=== PATIENT | female | born 1990 | race African-American/Black ===

== ENCOUNTER 2017-07-21 13:25 | Emergency (ER) | payer SELFPAY ==
--- NOTE | 2017-07-21 14:48 | ER ---
Nurse's Notes [facility] Name: Suha Valencia Age: 26 yrs Sex: Female : 1990 Arrival Date: 07/21/2017 Time: 13:26 Bed 15 Private MD: Diagnosis: Streptococcal pharyngitis Presentation: 07/21 13:31 Presenting complaint: Patient states: Left ear pain since yesterday. Reports fever at home. Transition of care: patient was not received from another setting of care. Onset of symptoms was July 20, 2017. Care prior to arrival: None. 13:31 Method Of Arrival: Ambulatory 13:31 Acuity: KRISTIAN 5 Triage Assessment: 13:33 General: Appears in no apparent distress. comfortable, Behavior is calm, cooperative, aj appropriate for age. Pain: Complains of pain in left ear Pain currently is 8 out of 10 on a pain scale. EENT: Reports pain in left ear. Neuro: Level of Consciousness is awake, alert, obeys commands, Oriented to person, place, time, situation. Respiratory: Airway is patent Respiratory effort is even, unlabored, Respiratory pattern is regular, symmetrical. Derm: Skin is intact, is healthy with good turgor, Skin is pink, warm \T\ dry. normal. 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 - Social history:: Smoking status: Patient/guardian denies using tobacco. Screenin:15 Abuse screen: Denies threats or abuse. Denies injuries from another. Nutritional sv screening: No deficits noted. Tuberculosis screening: No symptoms or risk factors identified. Fall Risk None identified. Assessment: 14:15 General: Appears in no apparent distress. comfortable, well developed, Behavior is sv calm, cooperative, appropriate for age. Pain: Complains of pain in left ear and throat Pain currently is 8 out of 10 on a pain scale. Quality of pain is described as burning. Neuro: Level of Consciousness is awake, alert, obeys commands, Oriented to person, place, time, situation, Moves all extremities. Full function Gait is steady, Speech is normal. Respiratory: Respiratory effort is even, unlabored, Respiratory pattern is regular, symmetrical. EENT: Reports pain in left ear sore throat. Derm: Skin is normal. 14:59 Reassessment: Patient appears in no apparent distress at this time. No changes from sv previously documented assessment. Patient and/or family updated on plan of care and expected duration. Pain level reassessed. Patient is alert, oriented x 3, equal unlabored respirations, skin warm/dry/pink. Vital Signs: 13:33 BP 119 / 80; Pulse 85; Resp 20; Temp 97.9; Pulse Ox 99% on R/A; Weight 83.46 kg (R); aj Height 5 ft. 7 in. (170.18 cm) (R); Pain 8/10; 13:33 Body Mass Index 28.82 (83.46 kg, 170.18 cm) aj ED Course: 13:26 Patient arrived in ED. as 13:28 Kelly Pablo FNP-C is PHCP. kb 13:28 Joselito Sung MD is Attending Physician. kb 13:32 Triage completed. aj 13:33 Arm band placed on left wrist. Patient placed in waiting room, Patient notified of wait aj time. 14:12 Basia Gonzalez, JEOVANNY is Primary Nurse. sv 14:15 Patient has correct armband on for positive identification. Bed in low position. Call sv light in reach. Door closed. Lights dimmed. Head of bed elevated. 14:21 Strep Sent. ag 14:21 Flu Sent. ag 14:21 Flu and/or RSV swab sent to lab. Strep swab sent to lab. ag 14:59 No provider procedures requiring assistance completed. Patient did not have IV access sv during this emergency room visit. Administered Medications: 14:58 Drug: Augmentin 875 mg Route: PO; sv 14:58 Follow up: Response: Medication administered at discharge. sv Outcome: 14:47 Discharge ordered by . kb 14:59 Discharged to home ambulatory. sv 14:59 Condition: stable 14:59 Discharge instructions given to patient, Instructed on discharge instructions, follow up and referral plans. no drinking with medication, medication usage, Demonstrated understanding of instructions, follow-up care, medications, Prescriptions given X 1. 15:01 Patient left the ED. sv Signatures: Kelly Pablo FNP-C FNP-Ckb Basia Gonzalez, RN RN Kaye Conrad, RN RN Rebecca Quevedo Ana
--- NOTE | 2017-07-21 14:48 | EDPHYS ---
Physician Documentation [facility] Name: Suha Valencia Age: 26 yrs Sex: Female : 1990 Arrival Date: 07/21/2017 Time: 13:26 Bed 15 Private MD: ED Physician Joselito Sung HPI: 07/21 14:42 This 26 yrs old Black Female presents to ER via Ambulatory with complaints of Fever, kb Cough, Ear Pain. 14:42 The patient or guardian reports cough, that is intermittent, described as mild, with no kb sputum, flu symptoms, low-grade fever, myalgias. Onset: The symptoms/episode began/occurred this morning. Severity of symptoms: At their worst the symptoms were mild, moderate, in the emergency department the symptoms are unchanged. Modifying factors: The symptoms are alleviated by nothing, the symptoms are aggravated by nothing. Associated signs and symptoms: Pertinent positives: earache, fever, rhinorrhea, sore throat, Pertinent negatives: chest pain, diarrhea, nausea, vomiting. The patient has not experienced similar symptoms in the past. The patient has not recently seen a physician. 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 - Social history:: Smoking status: Patient/guardian denies using tobacco. ROS: 14:42 Cardiovascular: Negative for chest pain, palpitations, and edema, Abdomen/GI: Negative kb for abdominal pain, nausea, vomiting, diarrhea, and constipation, Back: Negative for injury and pain, : Negative for injury, bleeding, discharge, and swelling, MS/Extremity: Negative for injury and deformity, Skin: Negative for injury, rash, and discoloration, Neuro: Negative for headache, weakness, numbness, tingling, and seizure. 14:42 Constitutional: Positive for fever, malaise, Negative for body aches, chills, fatigue, poor PO intake, weight loss. 14:42 ENT: Positive for ear pain, rhinorrhea, sore throat. 14:42 Respiratory: Positive for cough, Negative for dyspnea on exertion, hemoptysis, orthopnea, pleurisy, shortness of breath, sputum production, wheezing. Exam: 14:42 Constitutional: This is a well developed, well nourished patient who is awake, alert, kb and in no acute distress. Head/Face: Normocephalic, atraumatic. ENT: Nares patent. No nasal discharge, no septal abnormalities noted. Tympanic membranes are normal and external auditory canals are clear. Oropharynx with redness, no swelling, or masses, exudates, or evidence of obstruction, uvula midline. Mucous membranes moist. Neck: Trachea midline, no thyromegaly or masses palpated, and no cervical lymphadenopathy. Supple, full range of motion without nuchal rigidity, or vertebral point tenderness. No Meningismus. Chest/axilla: Normal chest wall appearance and motion. Nontender with no deformity. No lesions are appreciated. Cardiovascular: Regular rate and rhythm with a normal S1 and S2. No gallops, murmurs, or rubs. Normal PMI, no JVD. No pulse deficits. Respiratory: Lungs have equal breath sounds bilaterally, clear to auscultation and percussion. No rales, rhonchi or wheezes noted. No increased work of breathing, no retractions or nasal flaring. Abdomen/GI: Soft, non-tender, with normal bowel sounds. No distension or tympany. No guarding or rebound. No evidence of tenderness throughout. Skin: Warm, dry with normal turgor. Normal color with no rashes, no lesions, and no evidence of cellulitis. MS/ Extremity: Pulses equal, no cyanosis. Neurovascular intact. Full, normal range of motion. Neuro: Awake and alert, GCS 15, oriented to person, place, time, and situation. Cranial nerves II-XII grossly intact. Motor strength 5/5 in all extremities. Sensory grossly intact. Cerebellar exam normal. Normal gait. Vital Signs: 13:33 BP 119 / 80; Pulse 85; Resp 20; Temp 97.9; Pulse Ox 99% on R/A; Weight 83.46 kg (R); aj Height 5 ft. 7 in. (170.18 cm) (R); Pain 8/10; 13:33 Body Mass Index 28.82 (83.46 kg, 170.18 cm) aj MDM: 14:01 Patient medically screened. kb 14:44 Data reviewed: vital signs, nurses notes. Data interpreted: Pulse oximetry: on room air kb is 99 %. Interpretation: normal. 14:47 Counseling: I had a detailed discussion with the patient and/or guardian regarding: the kb historical points, exam findings, and any diagnostic results supporting the discharge/admit diagnosis, lab results, the need for outpatient follow up, a family practitioner, to return to the emergency department if symptoms worsen or persist or if there are any questions or concerns that arise at home. 07/21 14:08 Order name: Flu; Complete Time: 14:46 kb 07/21 14:08 Order name: Strep; Complete Time: 14:46 kb Administered Medications: 14:58 Drug: Augmentin 875 mg Route: PO; sv 14:58 Follow up: Response: Medication administered at discharge. sv Disposition: 07/22 08:03 Co-signature as Attending Physician, Joselito Sung MD I agree with the assessment and wa plan of care. Disposition: 07/21/17 14:47 Discharged to Home. Impression: Streptococcal pharyngitis. - Condition is Stable. - Discharge Instructions: Strep Throat, [id number]. - Prescriptions for Augmentin 875- 125 mg Oral Tablet - take 1 tablet by ORAL route every 12 hours for 7 days; 14 tablet. - Work release form, Medication Reconciliation Form, Thank You Letter, Antibiotic Education, Prescription Opioid Use form. - Follow up: Emergency Department; When: As needed; Reason: Worsening of condition. Follow up: Private Physician; When: 2 - 3 days; Reason: Recheck today's complaints, Continuance of care, Re-evaluation by your physician. Signatures: Dispatcher [employer] Kelly Watts, FREEDOM SCHMITZ-Basia Parisi, RN Kaye Wagner RN RN aj Appiah, William, MD MD wa
[2017-07-21] MEDS ORDERED: AMOX/K CLAV 875 MG TAB ONE (14:50)
[2017-07-21 15:06] VITALS: BP 119/80; TEMP 97.9; O2SAT 99
== END 2017-07-21 15:01 | disposition home or self-care (01) ==
LOC: ER 13:25
DX: J02.0 Streptococcal pharyngitis (principal)
CPT/HCPCS: 87081; 87804; 99283

== ENCOUNTER 2017-11-23 22:29 | Emergency (ER) | payer SELFPAY ==
--- NOTE | 2017-11-23 23:29 | EDPHYS ---
Physician Documentation [facility] Name: Suha Valencia Age: 27 yrs Sex: Female : 1990 Arrival Date: 11/23/2017 Time: 22:31 Bed 30 Private MD: ED Physician Chino Braun HPI: 11/24 01:07 This 27 yrs old Black Female presents to ER via Ambulatory with complaints of Back Pain.snw 01:07 The patient presents with pain that is acute, with no known mechanism of injury. The snw symptoms are located in the right scapular area. Onset: The symptoms/episode began/occurred suddenly, 1 week(s) ago, and became persistent. The pain does not radiate. Associated signs and symptoms: The patient has no apparent associated signs or symptoms. The problem was sustained from unknown cause. Modifying factors: The patient symptoms are alleviated by nothing, the patient symptoms are aggravated by movement. Severity of symptoms: At their worst the symptoms were moderate, severe. The patient has not experienced similar symptoms in the past. The patient has not recently seen a physician. Historical: - Home Meds: 11/23 22:44 None [Active]; rv - PMHx: 22:44 None; rv - PSHx: 22:44 None; rv - Immunization history:: Adult Immunizations up to date. - Social history:: Smoking status: Patient/guardian denies using tobacco, never smoked. - Ebola Screening: : Patient negative for fever greater than or equal to 101.5 degrees Fahrenheit, and additional compatible Ebola Virus Disease symptoms Patient denies exposure to infectious person Patient denies travel to an Ebola-affected area in the 21 days before illness onset. ROS: 11/24 01:07 Constitutional: Negative for fever, chills, and weight loss, Eyes: Negative for injury, snw pain, redness, and discharge, ENT: Negative for injury, pain, and discharge, Neck: Negative for injury, pain, and swelling, Cardiovascular: Negative for chest pain, palpitations, and edema, Respiratory: Negative for shortness of breath, cough, wheezing, and pleuritic chest pain, Abdomen/GI: Negative for abdominal pain, nausea, vomiting, diarrhea, and constipation, : Negative for injury, bleeding, discharge, and swelling, MS/Extremity: Negative for injury and deformity, Skin: Negative for injury, rash, and discoloration, Neuro: Negative for headache, weakness, numbness, tingling, and seizure. Back: Positive for pain at rest, pain with movement. Exam: 01:06 Constitutional: This is a well developed, well nourished patient who is awake, alert, snw and in no acute distress. Head/Face: Normocephalic, atraumatic. Eyes: Pupils equal round and reactive to light, extra-ocular motions intact. Lids and lashes normal. Conjunctiva and sclera are non-icteric and not injected. Cornea within normal limits. Periorbital areas with no swelling, redness, or edema. ENT: Nares patent. No nasal discharge, no septal abnormalities noted. Tympanic membranes are normal and external auditory canals are clear. Oropharynx with no redness, swelling, or masses, exudates, or evidence of obstruction, uvula midline. Mucous membranes moist. Neck: Trachea midline, no thyromegaly or masses palpated, and no cervical lymphadenopathy. Supple, full range of motion without nuchal rigidity, or vertebral point tenderness. No Meningismus. Chest/axilla: Normal chest wall appearance and motion. Nontender with no deformity. No lesions are appreciated. Cardiovascular: Regular rate and rhythm with a normal S1 and S2. No gallops, murmurs, or rubs. Normal PMI, no JVD. No pulse deficits. Respiratory: Lungs have equal breath sounds bilaterally, clear to auscultation and percussion. No rales, rhonchi or wheezes noted. No increased work of breathing, no retractions or nasal flaring. Abdomen/GI: Soft, non-tender, with normal bowel sounds. No distension or tympany. No guarding or rebound. No evidence of tenderness throughout. Skin: Warm, dry with normal turgor. Normal color with no rashes, no lesions, and no evidence of cellulitis. MS/ Extremity: Pulses equal, no cyanosis. Neurovascular intact. Full, normal range of motion. Neuro: Awake and alert, GCS 15, oriented to person, place, time, and situation. Cranial nerves II-XII grossly intact. Motor strength 5/5 in all extremities. Sensory grossly intact. Cerebellar exam normal. Normal gait. 01:06 Back: pain, that is moderate, of the right scapular area and right subscapular area, muscle spasm, is appreciated in the right subscapular area. 01:07 Neuro: Exam negative for acute changes. snw Vital Signs: 11/23 22:45 BP 104 / 89; Pulse 97; Pulse Ox 99% ; Weight 81.65 kg (R); Height 5 ft. 7 in. (170.18 rv cm) (R); 23:42 BP 112 / 72; Pulse 78; Resp 18; Pulse Ox 99% on R/A; sr5 22:45 Body Mass Index 28.19 (81.65 kg, 170.18 cm) rv MDM: 22:44 Patient medically screened. snw 11/24 01:08 Data reviewed: vital signs, nurses notes. Data interpreted: Pulse oximetry: on room air snw is 99 %. Interpretation: normal. Counseling: I had a detailed discussion with the patient and/or guardian regarding: the historical points, exam findings, and any diagnostic results supporting the discharge/admit diagnosis, the need for outpatient follow up, to return to the emergency department if symptoms worsen or persist or if there are any questions or concerns that arise at home. Special discussion: Based on the history and exam findings, there is no indication for further emergent testing or inpatient evaluation. I discussed with the patient/guardian the need to see the primary care provider for further evaluation of the symptoms. Administered Medications: 11/23 23:33 Drug: Flexeril 10 mg Route: PO; sr5 23:42 Follow up: Response: Medication administered at discharge. sr5 23:33 Drug: Motrin 400 mg Route: PO; sr5 23:42 Follow up: Response: Medication administered at discharge. sr5 Disposition: 11/24 06:54 Co-signature as Attending Physician, Chino Braun MD I agree with the assessment and cassandra plan of care. Disposition: 11/23/17 23:28 Discharged to Home. Impression: Muscle spasm of back. - Condition is Stable. - Discharge Instructions: Muscle Cramps and Spasms, Back Injury Prevention, [id number], Back Exercises, [id number], Heat Therapy. - Prescriptions for Diclofenac Sodium 75 mg Oral Tablet Sustained Release - take 1 tablet by ORAL route 2 times per day; 30 tablet. orphenadrine citrate 100 mg Oral Tablet Sustained Release - take 1 tablet by ORAL route 2 times per day As needed; 20 tablet. - Work release form, Medication Reconciliation Form, Thank You Letter, Antibiotic Education, Prescription Opioid Use form. - Follow up: Private Physician; When: 2 - 3 days; Reason: Recheck today's complaints, Continuance of care, Re-evaluation by your physician. Follow up: Emergency Department; When: As needed; Reason: Worsening of condition. Signatures: Chino Braun MD MD cha Therrien, Shelly, TIP SCOURER-C TIP SCOURER-Csnw Cleveland Bajwa RN RN sr5 Moises Marr RN RN rv Corrections: (The following items were deleted from the chart) 11/23 23:41 23:28 11/23/2017 23:28 Discharged to Home. Impression: Muscle spasm of back. Condition sr5 is Stable. Forms are Medication Reconciliation Form, Thank You Letter, Antibiotic Education, Prescription Opioid Use. Follow up: Private Physician; When: 2 - 3 days; Reason: Recheck today's complaints, Continuance of care, Re-evaluation by your physician. Follow up: Emergency Department; When: As needed; Reason: Worsening of condition. snw
--- NOTE | 2017-11-23 23:29 | ER ---
Nurse's Notes [facility] Name: Suha Valencia Age: 27 yrs Sex: Female : 1990 Arrival Date: 11/23/2017 Time: 22:31 Bed 30 Private MD: Diagnosis: Muscle spasm of back Presentation: 11/23 22:42 Presenting complaint: Patient states: "I AM HAVING BACK PAINS FOR ONE WEEK NOW". rv Transition of care: patient was not received from another setting of care. Onset of symptoms was November 17, 2017 at 08:00. Risk Assessment: Do you want to hurt yourself or someone else? Patient reports no desire to harm self or others. Initial Sepsis Screen: Does the patient meet any 2 criteria? No. Patient's initial sepsis screen is negative. Does the patient have a suspected source of infection? No. Patient's initial sepsis screen is negative. Care prior to arrival: None. 22:42 Method Of Arrival: Ambulatory rv 22:42 Acuity: KRISTIAN 3 rv Historical: - Home Meds: 22:44 None [Active]; rv - PMHx: 22:44 None; rv - PSHx: 22:44 None; rv - Immunization history:: Adult Immunizations up to date. - Social history:: Smoking status: Patient/guardian denies using tobacco, never smoked. - Ebola Screening: : Patient negative for fever greater than or equal to 101.5 degrees Fahrenheit, and additional compatible Ebola Virus Disease symptoms Patient denies exposure to infectious person Patient denies travel to an Ebola-affected area in the 21 days before illness onset. Screenin:46 Abuse screen: Denies threats or abuse. Denies injuries from another. Nutritional rv screening: No deficits noted. Tuberculosis screening: No symptoms or risk factors identified. Fall Risk None identified. Assessment: 22:46 General: Appears in no apparent distress. uncomfortable, Behavior is calm, cooperative. rv Pain: Complains of pain in back Pain currently is 9 out of 10 on a pain scale. Neuro: Level of Consciousness is awake, alert, obeys commands, Oriented to person, place, time, situation. Cardiovascular: Capillary refill < 3 seconds. Respiratory: Airway is patent. GI: No signs and/or symptoms were reported involving the gastrointestinal system. : No signs and/or symptoms were reported regarding the genitourinary system. EENT: No signs and/or symptoms were reported regarding the EENT system. Derm: Skin is intact. Musculoskeletal: Reports pain in back. 23:33 Reassessment: No changes from previously documented assessment. Patient and/or family sr5 updated on plan of care and expected duration. Pain level reassessed. Patient is alert, oriented x 3, equal unlabored respirations, skin warm/dry/pink. Vital Signs: 22:45 BP 104 / 89; Pulse 97; Pulse Ox 99% ; Weight 81.65 kg (R); Height 5 ft. 7 in. (170.18 rv cm) (R); 23:42 BP 112 / 72; Pulse 78; Resp 18; Pulse Ox 99% on R/A; sr5 22:45 Body Mass Index 28.19 (81.65 kg, 170.18 cm) rv ED Course: 22:31 Patient arrived in ED. al2 22:31 Kath[facility] Damon [facility]C [facility]. snw 22:31 Chino Braun MD is Attending Physician. snw 22:43 Cleveland Bajwa RN is Primary Nurse. sr5 22:43 Triage completed. rv 22:47 Patient has correct armband on for positive identification. Bed in low position. Call rv light in reach. Side rails up X 1. Adult w/ patient. Pulse ox on. NIBP on. 23:33 No provider procedures requiring assistance completed. Patient did not have IV access sr5 during this emergency room visit. 23:42 Arm band placed on right wrist. Patient placed in an exam room. sr5 Administered Medications: 23:33 Drug: Flexeril 10 mg Route: PO; sr5 23:42 Follow up: Response: Medication administered at discharge. sr5 23:33 Drug: Motrin 400 mg Route: PO; sr5 23:42 Follow up: Response: Medication administered at discharge. sr5 Outcome: 23:28 Discharge ordered by . snw 23:41 Patient left the ED. sr5 23:43 Discharged to home ambulatory, quickly got up from bed using twisting motion sr5 23:43 Condition: good 23:43 Discharge instructions given to patient, Instructed on discharge instructions, follow up and referral plans. medication usage, Demonstrated understanding of instructions, follow-up care, medications, Prescriptions given X 2. Signatures: Kathie Damon FNP-C GYNECOLOGIST-Csnw [place] Bajwa, RN RN sr5 Herminia Jama al2 Moises Marr, RN RN rv
[2017-11-23] MEDS ORDERED: CYCLOBENZAPRINE 10 MG TAB ONE (23:35)
[2017-11-23] MEDS ORDERED: IBUPROFEN 400 MG TAB ONE (23:35)
[2017-11-23 23:50] VITALS: BP 104/89; O2SAT 99
== END 2017-11-23 23:41 | disposition home or self-care (01) ==
LOC: ER 22:29
DX: M62.830 Muscle spasm of back (principal)
CPT/HCPCS: 99283

== ENCOUNTER 2018-07-12 11:22 | Emergency (ER) | payer SELFPAY ==
[2018-07-12 12:26] LABS: Absolute Lymphocytes (CBC) 2.3 K/uL (0.7-4.9); Absolute Monocytes 0.7 K/uL (0.1-1.3); Absolute Neutrophil 5.2 K/uL (1.8-8.0); Basophils % 0.5 % (0-1.3); Eosinophils % 1.6 % (0-4.4); Hematocrit 42.6 % (36.0-45.0); Lymphocytes % 27.6 % (15.3-44.8); MPV 7.6 fL (7.6-11.3); Monocytes % 8.7 % (3.3-12.3); RBC Red Blood Cell Count 4.73 M/uL (3.86-4.86)
[2018-07-12 12:30] LABS: Protime INR 1.04
[2018-07-12] MEDS ORDERED: ASPIRIN EC 81 MG TAB PO ONE (12:33)
[2018-07-12] MEDS ORDERED: KETOROLAC 30 MG/ML INJ ONE (12:33)
[2018-07-12 12:55] LABS: ALT/SGPT 17 U/L (12-78); AST/SGOT 14 U/L (15-37); Albumin 3.6 g/dL (3.4-5.0); Alkaline Phosphatase 71 U/L (45-117); BUN Blood Urea Nitrogen 11 mg/dL (7-18); Bicarbonate 28 mmol/L (21-32); Bilirubin Direct 0.1 mg/dL (0-0.2); Bilirubin Total 0.2 mg/dL (0.2-1.0); Glucose Level 101 mg/dL (74-106); Magnesium 1.8 mg/dL (1.8-2.4); NT PRO-BNP 17 pg/mL (<125); Potassium 3.5 mmol/L (3.5-5.1); Protein, Total 7.7 g/dL (6.4-8.2); Sodium Level 141 mmol/L (136-145); Troponin (Emerg Dept Use Only) < 0.02 ng/mL (0.0-0.045)
--- NOTE | 2018-07-12 13:03 | ER ---
Nurse's Notes [facility] Name: Suha Valencia Age: 27 yrs Sex: Female : 1990 Arrival Date: 07/12/2018 Time: 11:24 Bed 13 Private MD: None, None Diagnosis: Costochondritis Presentation: 07/12 11:32 Presenting complaint: Patient states: chest pain that it's constant x 2 days ago. Pt aa5 denies nausea, denies vomiting, reports SOB. Pt denies recent illness. Transition of care: patient was not received from another setting of care. Onset of symptoms was July 2018. Risk Assessment: Do you want to hurt yourself or someone else? Patient reports no desire to harm self or others. Initial Sepsis Screen: Does the patient meet any 2 criteria? No. Patient's initial sepsis screen is negative. Does the patient have a suspected source of infection? No. Patient's initial sepsis screen is negative. Care prior to arrival: None. 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 - Social history:: Smoking status: Patient/guardian denies using tobacco. - Ebola Screening: : No symptoms or risks identified at this time. Screenin:08 Abuse screen: Denies threats or abuse. Denies injuries from another. Nutritional hj screening: No deficits noted. Tuberculosis screening: No symptoms or risk factors identified. Fall Risk None identified. Assessment: 12:07 General: Appears in no apparent distress. uncomfortable, Behavior is calm, cooperative, hj appropriate for age. Pain: Complains of pain in chest Pain radiates to back and right arm Pain began 1 day ago. Neuro: Level of Consciousness is awake, alert, obeys commands, Oriented to person, place, time, situation, Appropriate for age. Cardiovascular: Capillary refill < 3 seconds Patient's skin is warm and dry. Respiratory: Airway is patent Respiratory effort is even, unlabored, Respiratory pattern is regular, symmetrical. GI: No signs and/or symptoms were reported involving the gastrointestinal system. : No signs and/or symptoms were reported regarding the genitourinary system. EENT: No signs and/or symptoms were reported regarding the EENT system. Derm: No signs and/or symptoms reported regarding the dermatologic system. Musculoskeletal: No signs and/or symptoms reported regarding the musculoskeletal system. 13:29 Reassessment: Patient and/or family updated on plan of care and expected duration. Pain hj level reassessed. Patient is alert, oriented x 3, equal unlabored respirations, skin warm/dry/pink. Patient states feeling better. Patient states symptoms have improved. Vital Signs: 11:33 BP 122 / 80; Pulse 91; Resp 18 S; Temp 97.8(TE); Pulse Ox 98% on R/A; Weight 90.72 kg aa5 (R); Height 5 ft. 7 in. (170.18 cm) (R); Pain 8/10; 12:30 BP 127 / 80; Pulse 89; Resp 18; Pulse Ox 100% on R/A; hj 13:28 BP 125 / 78; Pulse 88; Resp 18; Pulse Ox 100% on R/A; hj 11:33 Body Mass Index 31.32 (90.72 kg, 170.18 cm) aa5 ED Course: 11:24 Patient arrived in ED. mr 11:24 None, None is Private Physician. mr 11:32 Arm band placed on. aa5 11:33 Triage completed. aa5 11:35 EKG completed in triage. Results shown to MD. aa5 11:35 Patient placed in waiting room, Patient notified of wait time. aa5 11:58 Thang Clifford, JEOVANNY is Primary Nurse. hj 12:03 Ernesto Trejo PA is PHCP. jr8 12:03 Akhil De Souza MD is Attending Physician. jr8 12:06 Initial lab(s) drawn, by me. Inserted saline lock: 20 gauge in right antecubital area, hj using aseptic technique. Blood collected. 12:08 Patient has correct armband on for positive identification. Placed in gown. Bed in low hj position. Call light in reach. Side rails up X 1. monitor technician on. 12:08 Patient maintains SpO2 saturation greater than 95% on room air. hj 12:16 EKG done, by conveyor technician. reviewed by Ernesto ZEPEDA. jb1 13:02 XRAY Chest (1 view) In Process Unspecified. EDMS 13:27 No provider procedures requiring assistance completed. IV discontinued, intact, hj bleeding controlled, No redness/swelling at site. Pressure dressing applied. Administered Medications: 12:12 Drug: Aspirin Chewable Tablet 324 mg Route: PO; hj 13:30 Follow up: Response: No adverse reaction hj 12:12 Drug: TORadol 15 mg Route: IVP; Site: right antecubital; hj 13:29 Follow up: Response: No adverse reaction; Pain is decreased hj Outcome: 13:02 Discharge ordered by . tosin 13:28 Discharged to home ambulatory. hj 13:28 Condition: stable 13:28 Discharge instructions given to patient, Instructed on discharge instructions, follow up and referral plans. medication usage, Demonstrated understanding of instructions, follow-up care, medications, Prescriptions given X 1. 13:30 Patient left the ED. hj Signatures: Dispatcher [employer] EDMS Costa Us jb1 ZunigaAlexandria mr Padgett, Bernarda, RN RN aa5 Ernesto Trejo PA PA jr8 Thang Clifford RN RN
--- NOTE | 2018-07-12 13:03 | EDPHYS ---
Physician Documentation [facility] Name: Suha Valencia Age: 27 yrs Sex: Female : 1990 Arrival Date: 07/12/2018 Time: 11:24 Bed 13 Private MD: None, None ED Physician Akhil De Souza HPI: 07/12 12:25 This 27 yrs old Black Female presents to ER via Ambulatory with complaints of Chest jr8 Pain. 12:25 The patient or guardian reports chest pain that is located primarily in the substernal jr8 area. The pain radiates to the right arm. Associated signs and symptoms: The patient has no apparent associated signs or symptoms. The chest pain is described as sharp. Duration: The patient or guardian reports a single episode, that is still ongoing. Modifying factors: The symptoms are alleviated by nothing. the symptoms are aggravated by deep breath, palpation of area. Severity of pain: At its worst the pain was moderate in the emergency department the pain has improved mildly. The patient has not experienced similar symptoms in the past. The patient has not recently seen a physician. Denies smoking or drug abuse. Stated that she had drank a lot over the weekend for someone's birthday but normally does not do this. Denies any other medical problems. Strong family history of [place]'s with at young age . 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 - Social history:: Smoking status: Patient/guardian denies using tobacco. - Ebola Screening: : No symptoms or risks identified at this time. ROS: 12:25 Eyes: Negative for injury, pain, redness, and discharge, ENT: Negative for injury, jr8 pain, and discharge, Neck: Negative for injury, pain, and swelling, Respiratory: Negative for shortness of breath, cough, wheezing, and pleuritic chest pain, Abdomen/GI: Negative for abdominal pain, nausea, vomiting, diarrhea, and constipation, Back: Negative for injury and pain, MS/Extremity: Negative for injury and deformity, Skin: Negative for injury, rash, and discoloration, Neuro: Negative for headache, weakness, numbness, tingling, and seizure. 12:25 Cardiovascular: Positive for chest pain, Negative for edema, orthopnea, palpitations, paroxysmal nocturnal dyspnea. Exam: 12:25 Head/Face: Normocephalic, atraumatic. Eyes: Pupils equal round and reactive to light, jr8 extra-ocular motions intact. Lids and lashes normal. Conjunctiva and sclera are non-icteric and not injected. Cornea within normal limits. Periorbital areas with no swelling, redness, or edema. ENT: Nares patent. No nasal discharge, no septal abnormalities noted. Tympanic membranes are normal and external auditory canals are clear. Oropharynx with no redness, swelling, or masses, exudates, or evidence of obstruction, uvula midline. Mucous membranes moist. Neck: Trachea midline, no thyromegaly or masses palpated, and no cervical lymphadenopathy. Supple, full range of motion without nuchal rigidity, or vertebral point tenderness. No Meningismus. Cardiovascular: Regular rate and rhythm with a normal S1 and S2. No gallops, murmurs, or rubs. Normal PMI, no JVD. No pulse deficits. Respiratory: Lungs have equal breath sounds bilaterally, clear to auscultation and percussion. No rales, rhonchi or wheezes noted. No increased work of breathing, no retractions or nasal flaring. Abdomen/GI: Soft, non-tender, with normal bowel sounds. No distension or tympany. No guarding or rebound. No evidence of tenderness throughout. Back: No spinal tenderness. No costovertebral tenderness. Full range of motion. Skin: Warm, dry with normal turgor. Normal color with no rashes, no lesions, and no evidence of cellulitis. MS/ Extremity: Pulses equal, no cyanosis. Neurovascular intact. Full, normal range of motion. Neuro: Awake and alert, GCS 15, oriented to person, place, time, and situation. Cranial nerves II-XII grossly intact. Motor strength 5/5 in all extremities. Sensory grossly intact. Cerebellar exam normal. Normal gait. 12:25 Chest/axilla: Inspection: normal, Palpation: tenderness, that is moderate, of the sternal borders, that totally reproduces the patient's complaints. 12:25 ECG was reviewed by the Attending Physician. Vital Signs: 11:33 BP 122 / 80; Pulse 91; Resp 18 S; Temp 97.8(TE); Pulse Ox 98% on R/A; Weight 90.72 kg aa5 (R); Height 5 ft. 7 in. (170.18 cm) (R); Pain 8/10; 12:30 BP 127 / 80; Pulse 89; Resp 18; Pulse Ox 100% on R/A; hj 13:28 BP 125 / 78; Pulse 88; Resp 18; Pulse Ox 100% on R/A; hj 11:33 Body Mass Index 31.32 (90.72 kg, 170.18 cm) aa5 MDM: 12:06 Patient medically screened. jr8 13:01 HEART Score: History: Moderately Suspicious (1), ECG: Normal (0), Age: < or = 45 years jr8 (0), Risk Factors: No Risk Factors Known (0), Troponin: < or = 1 x Normal Limit (0), Total Score =. Data reviewed: vital signs, nurses notes, lab test result(s), EKG, radiologic studies, plain films. Data interpreted: customer engagement manager: rate is 91 beats/min, rhythm is normal sinus rhythm, with no ectopy, Interpretation: normal rate, normal rhythm, Pulse oximetry: on room air is 98 %. Interpretation: normal. Counseling: I had a detailed discussion with the patient and/or guardian regarding: the historical points, exam findings, and any diagnostic results supporting the discharge/admit diagnosis, lab results, radiology results, the need for outpatient follow up, a family practitioner, to return to the emergency department if symptoms worsen or persist or if there are any questions or concerns that arise at home. Response to treatment: the patient's symptoms have markedly improved after treatment, and as a result, I will discharge patient. 07/12 12:11 Order name: Basic Metabolic Panel; Complete Time: 13:00 8 07/12 12:11 Order name: CBC with Diff; Complete Time: 12:30 jr8 07/12 12:11 Order name: LFT's; Complete Time: 13:00 jr8 07/12 12:11 Order name: Magnesium; Complete Time: 13:00 jr8 07/12 12:11 Order name: NT PRO-BNP; Complete Time: 13: jr8 07/12 12:11 Order name: PT-INR; Complete Time: 12:41 07/12 12:11 Order name: Troponin (emerg Dept Use Only); Complete Time: 13:00 07/12 12:11 Order name: XRAY Chest (1 view); Complete Time: 13:12 07/12 12:11 Order name: EKG; Complete Time: 12:12 07/12 12:11 Order name: Cardiac monitoring; Complete Time: 12:16 07/12 12:11 Order name: EKG - Nurse/Tech; Complete Time: 12:07/12 12:11 Order name: IV Saline Lock; Complete Time: 12:07/12 12:11 Order name: Labs collected and sent; Complete Time: 12:07/12 12:11 Order name: O2 Per Protocol; Complete Time: 12:07/12 12:11 Order name: O2 Sat Monitoring; Complete Time: : EC:25 Rate is 78 beats/min. Rhythm is regular, Normal Sinus Rhythm. QRS [place] is Normal. [place] jr8 interval is normal at 144 msec. QRS interval is normal at 76 msec. QT interval is normal at 424 msec. No Q waves. T waves are Inverted in leads III, aVF, V1, V3, V4. T waves are Flattened in leads V5, V6. No ST changes noted. Clinical impression: NSR w/ Non-specific ST/T Changes. Interpreted by me. Reviewed by me. Administered Medications: 12:12 Drug: Aspirin Chewable Tablet 324 mg Route: PO; hj 13:30 Follow up: Response: No adverse reaction 12:12 Drug: TORadol 15 mg Route: IVP; Site: right antecubital; hj 13:29 Follow up: Response: No adverse reaction; Pain is decreased Disposition: 17:14 Co-signature as Attending Physician, Akhil De Souza MD. rn Disposition: 07/12/18 13:02 Discharged to Home. Impression: Costochondritis . - Condition is Stable. - Discharge Instructions: Costochondritis. - Prescriptions for Ibuprofen 800 mg Oral Tablet - take 1 tablet by ORAL route every 8 hours As needed take with food; 30 tablet. - Medication Reconciliation Form, Thank You Letter, Antibiotic Education, Prescription Opioid Use form. - Follow up: Private Physician; When: 2 - 3 days; Reason: Recheck today's complaints, Continuance of care, Re-evaluation by your physician. - Problem is new. - Symptoms have improved. Signatures: Dispatcher [employer] EDMS Akhil De Souza MD MD rn Calderon, Audri RN RN aa5 Ernesto Trejo PA PA jr8 Thang Clifford RN RN hj Corrections: (The following items were deleted from the chart) 13:30 13:02 07/12/2018 13:02 Discharged to Home. Impression: Costochondritis . Condition is hj Stable. Forms are Medication Reconciliation Form, Thank You Letter, Antibiotic Education, Prescription Opioid Use. Follow up: Private Physician; When: 2 - 3 days; Reason: Recheck today's complaints, Continuance of care, Re-evaluation by your physician. Problem is new. Symptoms have improved. jr8
--- NOTE | 2018-07-12 13:09 | RAD REPORT ---
EXAM DESCRIPTION: Addy Single View07/12/2018 1:02 pm CLINICAL HISTORY: Chest pain COMPARISON: none FINDINGS: The lungs appear clear of acute infiltrate. The heart is normal size IMPRESSION: No acute abnormalities displayed
[2018-07-12 15:36] VITALS: TEMP 97.8
[2018-07-12 15:41] VITALS: O2SAT 100
[2018-07-12 15:42] VITALS: BP 125/78
== END 2018-07-12 13:30 | disposition home or self-care (01) ==
LOC: ER 11:22
DX: M94.0 Chondrocostal junction syndrome [Tietze] (principal)
CPT/HCPCS: 36415; 71045; 80048; 80076; 83735; 83880; 84484; 85025; 85610; 93005; 96374; 99285

== ENCOUNTER 2018-08-01 10:00 | Emergency (ER) | payer SELFPAY ==
--- NOTE | 2018-08-01 11:30 | ER ---
Nurse's Notes [facility] Name: Suha Valencia Age: 27 yrs Sex: Female : 1990 Arrival Date: 08/01/2018 Time: 10:01 Bed 10 Private MD: Diagnosis: Acute pharyngitis Presentation: 08/01 10:05 Presenting complaint: Patient states: sore throat and cough that began yesterday. aa5 Transition of care: patient was not received from another setting of care. Onset of symptoms was July 2018. Risk Assessment: Do you want to hurt yourself or someone else? Patient reports no desire to harm self or others. Initial Sepsis Screen: Does the patient meet any 2 criteria? No. Patient's initial sepsis screen is negative. Does the patient have a suspected source of infection? No. Patient's initial sepsis screen is negative. Care prior to arrival: None. 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 - Social history:: Smoking status: Patient/guardian denies using tobacco. - Ebola Screening: : No symptoms or risks identified at this time. Screenin:44 Abuse screen: Denies threats or abuse. Denies injuries from another. Nutritional iw screening: No deficits noted. Tuberculosis screening: No symptoms or risk factors identified. Fall Risk None identified. Assessment: 10:43 General: Appears in no apparent distress. Behavior is calm, cooperative. General: iw Denies fever. Pain: Complains of pain in throat. Neuro: Level of Consciousness is awake, alert, obeys commands, Moves all extremities. Cardiovascular: Patient's skin is warm and dry. Respiratory: Airway is patent Respiratory effort is even, unlabored, Breath sounds are clear bilaterally. EENT: Throat is reddened with gag reflex present. Derm: Skin is intact, is healthy with good turgor. Musculoskeletal: Range of motion: intact in all extremities. 11:35 Neuro: Level of Consciousness is awake, alert, obeys commands, Oriented to person, aa5 place, time, situation. Respiratory: Airway is patent Respiratory effort is even, unlabored, Respiratory pattern is regular, symmetrical. Derm: Skin is dry, Skin is normal, Skin temperature is warm. Vital Signs: 10:07 BP 119 / 81; Pulse 82; Resp 16 S; Temp 97.1(TE); Pulse Ox 100% on R/A; Weight 86.18 kg aa5 (R); Height 5 ft. 7 in. (170.18 cm) (R); Pain 10/; 10:07 Body Mass Index 29.76 (86.18 kg, 170.18 cm) aa5 ED Course: 10:01 Patient arrived in ED. as 10:01 Kelly Pablo FNP-C is PSYCHIATRICP. kb 10:01 Chino Braun MD is Attending Physician. kb 10:05 Arm band placed on. aa5 10:05 Patient has correct armband on for positive identification. aa5 10:06 Triage completed. aa5 10:07 Bernarda Padgett, RN is Primary Nurse. aa5 10:28 Strep swab sent to lab. iw 11:35 No provider procedures requiring assistance completed. Patient did not have IV access aa5 during this emergency room visit. Administered Medications: No medications were administered Outcome: 11:29 Discharge ordered by MD. kb 11:35 Discharged to home ambulatory. aa5 11:35 Condition: stable 11:35 Discharge instructions given to patient, Instructed on discharge instructions, follow up and referral plans. Demonstrated understanding of instructions, follow-up care. 11:40 Patient left the ED. aa5 Signatures: Kelly Pablo FNP-C FNP-Ckb Martinez, Amelia as Carolina Cuevas, JEOVANNY RN iw Bernarda Padgett, RN RN aa5 Corrections: (The following items were deleted from the chart) 11:46 11:45 Patient left the ED. aa5 aa5
--- NOTE | 2018-08-01 11:31 | EDPHYS ---
Physician Documentation [facility] Name: Suha Valencia Age: 27 yrs Sex: Female : 1990 Arrival Date: 08/01/2018 Time: 10:01 Bed 10 Private MD: ED Physician Chino Braun HPI: 08/01 11:27 This 27 yrs old Black Female presents to ER via Ambulatory with complaints of Sore kb Throat. 11:27 The patient presents with sore throat. The patient describes throat pain as constant. kb Onset: The symptoms/episode began/occurred yesterday. Severity of symptoms: At their worst the symptoms were moderate, in the emergency department the symptoms are unchanged. Modifying factors: The symptoms are alleviated by nothing, the symptoms are aggravated by swallowing, Patient's oral intake status: good. Associated signs and symptoms: Pertinent positives: cough, Sore throat. The patient has not experienced similar symptoms in the past. The patient has not recently seen a physician. 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 - Social history:: Smoking status: Patient/guardian denies using tobacco. - Ebola Screening: : No symptoms or risks identified at this time. ROS: 11:28 Constitutional: Negative for fever, chills, and weight loss, Cardiovascular: Negative kb for chest pain, palpitations, and edema, Abdomen/GI: Negative for abdominal pain, nausea, vomiting, diarrhea, and constipation, : Negative for injury, bleeding, discharge, and swelling, MS/Extremity: Negative for injury and deformity, Skin: Negative for injury, rash, and discoloration, Neuro: Negative for headache, weakness, numbness, tingling, and seizure. 11:28 ENT: Positive for sore throat. 11:28 Respiratory: Positive for cough, Negative for dyspnea on exertion, hemoptysis, orthopnea, pleurisy, shortness of breath, sputum production, wheezing. Exam: 11:29 Constitutional: This is a well developed, well nourished patient who is awake, alert, kb and in no acute distress. Head/Face: Normocephalic, atraumatic. Chest/axilla: Normal chest wall appearance and motion. Nontender with no deformity. No lesions are appreciated. Cardiovascular: Regular rate and rhythm with a normal S1 and S2. No gallops, murmurs, or rubs. Normal PMI, no JVD. No pulse deficits. Respiratory: Lungs have equal breath sounds bilaterally, clear to auscultation and percussion. No rales, rhonchi or wheezes noted. No increased work of breathing, no retractions or nasal flaring. Abdomen/GI: Soft, non-tender, with normal bowel sounds. No distension or tympany. No guarding or rebound. No evidence of tenderness throughout. Skin: Warm, dry with normal turgor. Normal color with no rashes, no lesions, and no evidence of cellulitis. MS/ Extremity: Pulses equal, no cyanosis. Neurovascular intact. Full, normal range of motion. Neuro: Awake and alert, GCS 15, oriented to person, place, time, and situation. Cranial nerves II-XII grossly intact. Motor strength 5/5 in all extremities. Sensory grossly intact. Cerebellar exam normal. Normal gait. 11:29 ENT: External ear(s): are unremarkable, Ear canal(s): are normal, TM's: are normal, Nose: is normal, Posterior pharynx: Airway: normal, no evidence of obstruction, Tonsils: bilaterally enlarged, with erythema, Uvula: normal, midline, swelling, that is mild, erythema, that is mild, exudate, is not appreciated. Vital Signs: 10:07 BP 119 / 81; Pulse 82; Resp 16 S; Temp 97.1(TE); Pulse Ox 100% on R/A; Weight 86.18 kg aa5 (R); Height 5 ft. 7 in. (170.18 cm) (R); Pain 10/10; 10:07 Body Mass Index 29.76 (86.18 kg, 170.18 cm) aa5 MDM: 10:11 Patient medically screened. [facility] 11:28 Data reviewed: vital signs, nurses notes. Data interpreted: Pulse oximetry: on room air kb is 100 %. Interpretation: normal. Counseling: I had a detailed discussion with the patient and/or guardian regarding: the historical points, exam findings, and any diagnostic results supporting the discharge/admit diagnosis, lab results, the need for outpatient follow up, a family practitioner, to return to the emergency department if symptoms worsen or persist or if there are any questions or concerns that arise at home. 08/01 10:22 Order name: Strep; Complete Time: 10:59 kb 08/01 10:55 Order name: Throat Culture EDMS Administered Medications: No medications were administered Disposition: 08/01/18 11:29 Discharged to Home. Impression: Acute pharyngitis. - Condition is Stable. - Discharge Instructions: Pharyngitis, [id number], Sore Throat, [id number]. - Work release form, Medication Reconciliation Form, Thank You Letter, Antibiotic Education, Prescription Opioid Use form. - Follow up: Private Physician; When: 2 - 3 days; Reason: Recheck today's complaints, Continuance of care, Re-evaluation by your physician. Follow up: Emergency Department; When: As needed; Reason: Worsening of condition. Addendum: 08/02/2018 12:07 Co-signature as Attending Physician, Chino Braun MD I agree with the assessment and c oh plan of care. Signatures: Dispatcher [employer] EDMS Kelly Pablo, RECORDS MANAGEMENT COORDINATOR-C RECORDS MANAGEMENT COORDINATOR-Ckb Chino Braun MD MD cha Calderon, Audri, RN RN aa5 Corrections: (The following items were deleted from the chart) 08/01 11:45 11:29 08/01/2018 11:29 Discharged to Home. Impression: Acute pharyngitis. Condition is aa5 Stable. Forms are Medication Reconciliation Form, Thank You Letter, Antibiotic Education, Prescription Opioid Use. Follow up: Private Physician; When: 2 - 3 days; Reason: Recheck today's complaints, Continuance of care, Re-evaluation by your physician. Follow up: Emergency Department; When: As needed; Reason: Worsening of condition. kb
[2018-08-01 11:51] VITALS: BP 119/81; TEMP 97.1; O2SAT 100
== END 2018-08-01 11:45 | disposition home or self-care (01) ==
LOC: ER 10:00
DX: J02.9 Acute pharyngitis, unspecified (principal)
CPT/HCPCS: 87070; 87081; 99283

== ENCOUNTER 2018-09-25 20:22 | Emergency (ER) | payer SELFPAY ==
--- NOTE | 2018-09-25 21:05 | EDPHYS ---
Physician Documentation [facility] Name: Suha Valencia Age: 27 yrs Sex: Female : 1990 Arrival Date: 09/25/2018 Time: 20:35 Bed 13 Private MD: ED Physician Reynold Holden HPI: 09/25 21:00 This 27 yrs old Black Female presents to ER via Ambulatory with complaints of Back Pain.jr8 21:00 The patient presents with pain that is acute. The symptoms are located in the left jr8 scapular area, right scapular area, left low back, left mid back, right mid back and right low back. Onset: The symptoms/episode began/occurred acutely, today. The pain does not radiate. Associated signs and symptoms: The patient has no apparent associated signs or symptoms. The problem was sustained from unknown cause. Modifying factors: The patient symptoms are alleviated by nothing, the patient symptoms are aggravated by any movement. Severity of symptoms: At their worst the symptoms were mild, in the emergency department the symptoms are unchanged. The patient has not experienced similar symptoms in the past. The patient has not recently seen a physician. 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 - Social history:: Smoking status: Patient/guardian denies using tobacco. - Ebola Screening: : No symptoms or risks identified at this time. ROS: 21:00 Eyes: Negative for injury, pain, redness, and discharge, ENT: Negative for injury, jr8 pain, and discharge, Neck: Negative for injury, pain, and swelling, Cardiovascular: Negative for chest pain, palpitations, and edema, Respiratory: Negative for shortness of breath, cough, wheezing, and pleuritic chest pain, Abdomen/GI: Negative for abdominal pain, nausea, vomiting, diarrhea, and constipation, MS/Extremity: Negative for injury and deformity, Skin: Negative for injury, rash, and discoloration, Neuro: Negative for headache, weakness, numbness, tingling, and seizure. 21:00 Back: Positive for pain at rest, pain with movement, of the left scapular area, right scapular area, left low back, left mid back, right mid back and right low back. Exam: 21:00 Eyes: Pupils equal round and reactive to light, extra-ocular motions intact. Lids and jr8 lashes normal. Conjunctiva and sclera are non-icteric and not injected. Cornea within normal limits. Periorbital areas with no swelling, redness, or edema. ENT: Nares patent. No nasal discharge, no septal abnormalities noted. Tympanic membranes are normal and external auditory canals are clear. Oropharynx with no redness, swelling, or masses, exudates, or evidence of obstruction, uvula midline. Mucous membranes moist. Neck: Trachea midline, no thyromegaly or masses palpated, and no cervical lymphadenopathy. Supple, full range of motion without nuchal rigidity, or vertebral point tenderness. No Meningismus. Cardiovascular: Regular rate and rhythm with a normal S1 and S2. No gallops, murmurs, or rubs. Normal PMI, no JVD. No pulse deficits. Respiratory: Lungs have equal breath sounds bilaterally, clear to auscultation and percussion. No rales, rhonchi or wheezes noted. No increased work of breathing, no retractions or nasal flaring. Abdomen/GI: Soft, non-tender, with normal bowel sounds. No distension or tympany. No guarding or rebound. No evidence of tenderness throughout. Skin: Warm, dry with normal turgor. Normal color with no rashes, no lesions, and no evidence of cellulitis. MS/ Extremity: Pulses equal, no cyanosis. Neurovascular intact. Full, normal range of motion. Neuro: Awake and alert, GCS 15, oriented to person, place, time, and situation. Cranial nerves II-XII grossly intact. Motor strength 5/5 in all extremities. Sensory grossly intact. Cerebellar exam normal. Normal gait. 21:00 Back: pain, that is moderate, of the left trapezius, right trapezius, left scapular area, right scapular area, left low back, left mid back, right mid back and right low back, muscle spasm, is appreciated in the left scapular area, right scapular area, left mid back and right mid back. Vital Signs: 20:39 BP 130 / 78; Pulse 84; Resp 16; Temp 98.2; Pulse Ox 99% on R/A; Weight 95.25 kg (R); ak1 Height 5 ft. 7 in. (170.18 cm) (R); Pain 10/10; 21:15 BP 111 / 73; Pulse 90; Resp 18; Pulse Ox 99% on R/A; ea 20:39 Body Mass Index 32.89 (95.25 kg, 170.18 cm) ak1 MDM: 20:41 Patient medically screened. jr8 21:00 Data reviewed: vital signs, nurses notes, and as a result, I will discharge patient. jr8 Data interpreted: Pulse oximetry: on room air is 99 %. Interpretation: normal. Counseling: I had a detailed discussion with the patient and/or guardian regarding: the historical points, exam findings, and any diagnostic results supporting the discharge/admit diagnosis, the need for outpatient follow up, a family practitioner, to return to the emergency department if symptoms worsen or persist or if there are any questions or concerns that arise at home. Administered Medications: 21:19 Drug: TORadol - Ketorolac 15 mg Route: IM; Site: left deltoid; ea 21:23 Follow up: Response: No adverse reaction; Pain is decreased anny Disposition: 09/26 01:57 Co-signature as Attending Physician, Reynold Holden MD. etta Disposition: 09/25/18 21:05 Discharged to Home. Impression: Muscle spasm of back. - Condition is Stable. - Discharge Instructions: Muscle Cramps and Spasms, Back Exercises, [id number], Heat Therapy. - Prescriptions for Ibuprofen 800 mg Oral Tablet - take 1 tablet by ORAL route every 12 hours As needed take with food; 20 tablet. Zanaflex 4 mg Oral Tablet - take 1 tablet by ORAL route every 8 hours As needed; 20 tablet. - Medication Reconciliation Form, Thank You Letter, Antibiotic Education, Prescription Opioid Use, Work release form form. - Follow up: Private Physician; When: 2 - 3 days; Reason: Recheck today's complaints, Continuance of care, Re-evaluation by your physician. - Problem is new. - Symptoms have improved. Signatures: Ernesto Trejo PA PA jr8 Shelia Dubon RN RN ak1 Lorraine Bolanos RN RN ea Starr, Gregory, MD MD gs Corrections: (The following items were deleted from the chart) 09/25 21:27 21:05 09/25/2018 21:05 Discharged to Home. Impression: Muscle spasm of back. Condition ea is Stable. Forms are Medication Reconciliation Form, Thank You Letter, Antibiotic Education, Prescription Opioid Use. Follow up: Private Physician; When: 2 - 3 days; Reason: Recheck today's complaints, Continuance of care, Re-evaluation by your physician. Problem is new. Symptoms have improved. jr8
--- NOTE | 2018-09-25 21:05 | ER ---
Nurse's Notes [facility] Name: Suha Valencia Age: 27 yrs Sex: Female : 1990 Arrival Date: 09/25/2018 Time: 20:35 Bed 13 Private MD: Diagnosis: Muscle spasm of back Presentation: 09/25 20:39 Presenting complaint: Patient states: back from from the shoulders down the spine since ak1 this morning. Transition of care: patient was not received from another setting of care. Onset of symptoms was September 25, 2018. Risk Assessment: Do you want to hurt yourself or someone else? Patient reports no desire to harm self or others. Initial Sepsis Screen: Does the patient meet any 2 criteria? No. Patient's initial sepsis screen is negative. Does the patient have a suspected source of infection? No. Patient's initial sepsis screen is negative. Care prior to arrival: None. 20:39 Method Of Arrival: Ambulatory ak1 20:39 Acuity: KRISTIAN 4 ak1 Triage Assessment: 20:40 General: Appears in no apparent distress. Behavior is calm, cooperative, appropriate ak1 for age. Pain: Complains of pain in back. EENT: No signs and/or symptoms were reported regarding the EENT system. Neuro: No deficits noted. Cardiovascular: No deficits noted. Respiratory: No deficits noted. GI: No signs and/or symptoms were reported involving the gastrointestinal system. : No signs and/or symptoms were reported regarding the genitourinary system. Derm: No signs and/or symptoms reported regarding the dermatologic system. Musculoskeletal: Range of motion: intact in all extremities, Reports pain in back. 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 - Social history:: Smoking status: Patient/guardian denies using tobacco. - Ebola Screening: : No symptoms or risks identified at this time. Screenin:52 Abuse screen: Denies threats or abuse. Nutritional screening: No deficits noted. ea Tuberculosis screening: No symptoms or risk factors identified. Fall Risk None identified. Assessment: 20:45 General: Appears in no apparent distress. Behavior is calm, cooperative, appropriate ea for age. Pain: Complains of pain in back. Neuro: Level of Consciousness is awake, alert, obeys commands, Oriented to person, place, time, situation. Cardiovascular: Patient's skin is warm and dry. Respiratory: Airway is patent Respiratory effort is even, unlabored, Respiratory pattern is regular, symmetrical. Derm: Skin is pink, warm \T\ dry. 21:24 Reassessment: Patient and/or family updated on plan of care and expected duration. Pain ea level reassessed. Patient is alert, oriented x 3, equal unlabored respirations, skin warm/dry/pink. Discharge instruction given to patient, verbalized the understanding of instruction, pt left ED ambulatory, tolerating well Patient states feeling better. Vital Signs: 20:39 BP 130 / 78; Pulse 84; Resp 16; Temp 98.2; Pulse Ox 99% on R/A; Weight 95.25 kg (R); ak1 Height 5 ft. 7 in. (170.18 cm) (R); Pain 10/10; 21:15 BP 111 / 73; Pulse 90; Resp 18; Pulse Ox 99% on R/A; ea 20:39 Body Mass Index 32.89 (95.25 kg, 170.18 cm) ak1 ED Course: 20:35 Patient arrived in ED. es 20:38 Ernesto Trejo PA is PHCP. jr8 20:38 Reynold Holden MD is Attending Physician. jr8 20:40 Triage completed. ak1 20:40 Arm band placed on Patient placed in an exam room, on a stretcher, Patient notified of ak1 wait time. 20:45 Lorraine Bolanos, JEOVANNY is Primary Nurse. ea 20:52 Patient has correct armband on for positive identification. Bed in low position. Call ea light in reach. Side rails up X2. 21:25 No provider procedures requiring assistance completed. Patient did not have IV access ea during this emergency room visit. Administered Medications: 21:19 Drug: TORadol - Ketorolac 15 mg Route: IM; Site: left deltoid; ea 21:23 Follow up: Response: No adverse reaction; Pain is decreased ea Outcome: 21:05 Discharge ordered by . jr8 21:25 Discharged to home ambulatory. ea 21:25 Condition: good 21:25 Discharge instructions given to patient, Instructed on discharge instructions, follow up and referral plans. medication usage, Demonstrated understanding of instructions, follow-up care, medications, Prescriptions given X 2. 21:27 Patient left the ED. ea Signatures: Bekah Velez Josh, PA PA jr8 Shelia Dubon RN RN ak1 Lorraine Bolanos RN RN ea
[2018-09-25] MEDS ORDERED: KETOROLAC 30 MG/ML INJ ONE (21:30)
[2018-09-25 22:06] VITALS: TEMP 98.2; O2SAT 99
[2018-09-25 22:07] VITALS: BP 111/73
== END 2018-09-25 21:27 | disposition home or self-care (01) ==
LOC: ER 20:22
DX: M62.830 Muscle spasm of back (principal)
CPT/HCPCS: 96372; 99283

== ENCOUNTER 2018-10-16 20:22 | Emergency (ER) | payer SELFPAY ==
[2018-10-16 21:17] LABS: Absolute Lymphocytes (CBC) 2.9 K/uL (0.7-4.9); Basophils % 0.5 % (0-1.3); Eosinophils % 2.3 % (0-4.4); Hematocrit 41.9 % (36.0-45.0); Lymphocytes % 31.8 % (15.3-44.8); MPV 7.2 fL (7.6-11.3); Monocytes % 11.9 % (3.3-12.3); RBC Red Blood Cell Count 4.71 M/uL (3.86-4.86)
--- NOTE | 2018-10-16 21:22 | ER ---
Nurse's Notes [facility] Name: Suha Valencia Age: 27 yrs Sex: Female : 1990 Arrival Date: 10/16/2018 Time: 20:25 Bed 24 Private MD: Diagnosis: Vomiting;Diarrhea, unspecified Presentation: 10/16 20:44 Presenting complaint: Patient states: epigastric abd pain since Tuesday. pt c/o N/V/D ak1 since Tuesday. vomiting has resolved. pt c/o continued diarrhea with black stools since Tuesday after taking pepto OTC. Transition of care: patient was not received from another setting of care. Onset of symptoms is unknown. Risk Assessment: Do you want to hurt yourself or someone else? Patient reports no desire to harm self or others. Initial Sepsis Screen: Does the patient meet any 2 criteria? No. Patient's initial sepsis screen is negative. Does the patient have a suspected source of infection? No. Patient's initial sepsis screen is negative. Care prior to arrival: None. 20:44 Method Of Arrival: Ambulatory ak1 20:44 Acuity: KRISTIAN 3 ak1 Triage Assessment: 20:45 General: Appears in no apparent distress. Behavior is calm, cooperative, anxious. Pain: ak1 Complains of pain in epigastric area. 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 - Social history:: Smoking status: Patient/guardian denies using tobacco. - Ebola Screening: : No symptoms or risks identified at this time. Screenin:45 Abuse screen: Denies threats or abuse. Denies injuries from another. Nutritional ca1 screening: No deficits noted. Tuberculosis screening: No symptoms or risk factors identified. Fall Risk None identified. Assessment: 20:45 General: Appears in no apparent distress. comfortable, Behavior is calm, cooperative, ca1 appropriate for age. Pain: Complains of pain in right upper quadrant and left upper quadrant and epigastric area Pain does not radiate. Pain currently is 7 out of 10 on a pain scale. Pain began 2-3 days ago. Neuro: Level of Consciousness is awake, alert, obeys commands, Oriented to person, place, time, situation. Cardiovascular: Heart tones S1 S2 present Capillary refill < 3 seconds Patient's skin is warm and dry. Respiratory: Airway is patent Respiratory effort is even, unlabored, Respiratory pattern is regular, symmetrical, Breath sounds are clear bilaterally. GI: Abdomen is round non-distended, Bowel sounds present X 4 quads. Abd is soft X 4 quads Abdomen is tender to palpation in right upper quadrant Reports nausea, vomiting, since Tuesday but not today Black colored stool. : No deficits noted. No signs and/or symptoms were reported regarding the genitourinary system. EENT: No deficits noted. No signs and/or symptoms were reported regarding the EENT system. Derm: Skin is intact, is healthy with good turgor, Skin is pink, warm \T\ dry. Musculoskeletal: Circulation, motion, and sensation intact. Capillary refill < 3 seconds, Range of motion: intact in all extremities. 21:40 Reassessment: Patient appears in no apparent distress at this time. Patient is alert, ca1 oriented x 3, equal unlabored respirations, skin warm/dry/pink. Vital Signs: 20:43 BP 128 / 88; Pulse 92; Resp 18; Temp 98.1; Pulse Ox 100% on R/A; Weight 95.71 kg (R); ak1 Height 5 ft. 7 in. (170.18 cm) (R); Pain 9/10; 21:40 BP 125 / 85; Pulse 95; Resp 16 S; Temp 98.4(O); Pulse Ox 100% on R/A; ca1 20:43 Body Mass Index 33.05 (95.71 kg, 170.18 cm) ak1 ED Course: 20:25 Patient arrived in ED. ag3 20:43 Sarah aT, JEOVANNY is Primary Nurse. ca1 20:45 Triage completed. ak1 20:45 Arm band placed on Patient placed in an exam room, on a stretcher, on pulse oximetry, ak1 Patient notified of wait time. 20:45 Patient has correct armband on for positive identification. Placed in gown. Bed in low ca1 position. Call light in reach. Side rails up X 1. Pulse ox on. NIBP on. Warm blanket given. 20:45 No provider procedures requiring assistance completed. ca1 20:52 Reynold Holden MD is Attending Physician. gs 21:48 IV discontinued, intact, bleeding controlled, No redness/swelling at site. Pressure ca1 dressing applied. Administered Medications: 21:31 Not Given (Patient Refused): NS 0.9% 1000 ml IV at 1 bolus Per protocol; 1000 mL bolus ca1 Outcome: 21:21 Discharge ordered by . gs 21:48 Discharged to home ambulatory, with friend. ca1 21:48 Condition: stable 21:48 Discharge instructions given to patient, Instructed on discharge instructions, follow up and referral plans. medication usage, Demonstrated understanding of instructions, follow-up care, medications, Prescriptions given X 1. 21:48 Patient left the ED. ca1 Signatures: Shelia Dubon, RN RN ak1 Reynold Holden MD MD Nilsa Weaver3 Sarah Ta RN RN ca1
--- NOTE | 2018-10-16 21:22 | EDPHYS ---
Physician Documentation [facility] Name: Suha Valencia Age: 27 yrs Sex: Female : 1990 Arrival Date: 10/16/2018 Time: 20:25 Bed 24 Private MD: ED Physician Reynold Holden HPI: 10/17 11:08 This 27 yrs old Black Female presents to ER via Ambulatory with complaints of Abdominal gs Pain, Black/Tarry Stools. 11:08 The patient presents to the emergency department with vomiting, diarrhea. Onset: The gs symptoms/episode began/occurred 2 day(s) ago. Possible causes: unknown. The symptoms are alleviated by nothing. Associated signs and symptoms: Pertinent positives: BLACK STOOLS AFTER STARTING TAKING PEPTO-BISMOL. Severity of symptoms: At their worst the symptoms were moderate in the emergency department the symptoms are unchanged. The patient has not experienced similar symptoms in the past. The patient has not recently seen a physician. 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 - Social history:: Smoking status: Patient/guardian denies using tobacco. - Ebola Screening: : No symptoms or risks identified at this time. ROS: 10/17 11:08 All other systems are negative. gs Exam: 11:08 Head/Face: Normocephalic, atraumatic. Eyes: Pupils equal round and reactive to light, gs extra-ocular motions intact. Lids and lashes normal. Conjunctiva and sclera are non-icteric and not injected. Cornea within normal limits. Periorbital areas with no swelling, redness, or edema. ENT: Nares patent. No nasal discharge, no septal abnormalities noted. Tympanic membranes are normal and external auditory canals are clear. Oropharynx with no redness, swelling, or masses, exudates, or evidence of obstruction, uvula midline. Mucous membranes moist. Neck: Trachea midline, no thyromegaly or masses palpated, and no cervical lymphadenopathy. Supple, full range of motion without nuchal rigidity, or vertebral point tenderness. No Meningismus. Chest/axilla: Normal chest wall appearance and motion. Nontender with no deformity. No lesions are appreciated. Cardiovascular: Regular rate and rhythm with a normal S1 and S2. No gallops, murmurs, or rubs. Normal PMI, no JVD. No pulse deficits. Respiratory: Lungs have equal breath sounds bilaterally, clear to auscultation and percussion. No rales, rhonchi or wheezes noted. No increased work of breathing, no retractions or nasal flaring. Back: No spinal tenderness. No costovertebral tenderness. Full range of motion. Skin: Warm, dry with normal turgor. Normal color with no rashes, no lesions, and no evidence of cellulitis. MS/ Extremity: Pulses equal, no cyanosis. Neurovascular intact. Full, normal range of motion. Neuro: Awake and alert, GCS 15, oriented to person, place, time, and situation. Cranial nerves II-XII grossly intact. Motor strength 5/5 in all extremities. Sensory grossly intact. Cerebellar exam normal. Normal gait. 11:08 Constitutional: The patient appears alert, awake. 11:08 Abdomen/GI: Palpation: abdomen is soft and non-tender, in all quadrants, Rectal exam: Stool: guaiac negative, the exam is chaperoned by the nurse. Vital Signs: 10/16 20:43 BP 128 / 88; Pulse 92; Resp 18; Temp 98.1; Pulse Ox 100% on R/A; Weight 95.71 kg (R); ak1 Height 5 ft. 7 in. (170.18 cm) (R); Pain 9/10; 21:40 BP 125 / 85; Pulse 95; Resp 16 S; Temp 98.4(O); Pulse Ox 100% on R/A; ca1 20:43 Body Mass Index 33.05 (95.71 kg, 170.18 cm) ak1 MDM: 21:20 Patient medically screened. 10/17 11:08 Differential diagnosis: viral gastroenteritis, gastroenteritis, BLEEDING. Data gs reviewed: vital signs, nurses notes, lab test result(s). Counseling: I had a detailed discussion with the patient and/or guardian regarding: the historical points, exam findings, and any diagnostic results supporting the discharge/admit diagnosis, lab results, the need for outpatient follow up. Response to treatment: There is no appreciated change of the patient's symptoms at this time, and as a result, I will discharge patient. 10/16 20:53 Order name: CBC with Diff; Complete Time: 21:21 10/16 20:53 Order name: Basic Metabolic Panel; Complete Time: 11:08 10/16 20:53 Order name: Urine Microscopic Only; Complete Time: 11:08 10/16 21:16 Order name: Urine Dipstick--Ancillary (enter results); Complete Time: 11: hi 10/16 21:16 Order name: Urine --Ancillary (enter results); Complete Time: 11: hi 10/16 20:53 Order name: Urine Test (obtain specimen); Complete Time: 21:29 10/16 20:53 Order name: Urine Dipstick-Ancillary (obtain specimen); Complete Time: 21:29 Administered Medications: 10/16 21:31 Not Given (Patient Refused): NS 0.9% 1000 ml IV at 1 bolus Per protocol; 1000 mL bolus ca1 Disposition: 10/16/18 21:21 Discharged to Home. Impression: Vomiting, Diarrhea, unspecified. - Condition is Stable. - Discharge Instructions: Diarrhea, Adult, Nausea and Vomiting, Adult, [id number]. - Prescriptions for Zofran 4 mg Oral Tablet - take 1 tablet by ORAL route every 12 hours As needed; 6 tablet. - Medication Reconciliation Form, Thank You Letter, Antibiotic Education, Prescription Opioid Use form. - Follow up: Private Physician; When: 2 - 3 days; Reason: Re-evaluation by your physician. Signatures: Dis[facility] Shelia Dubon RN RN ak1 Reynold Holden MD MD gs Sarah Ta RN RN ca1 Corrections: (The following items were deleted from the chart) 21:48 21:21 10/16/2018 21:21 Discharged to Home. Impression: Vomiting; Diarrhea, unspecified. ca1 Condition is Stable. Forms are Medication Reconciliation Form, Thank You Letter, Antibiotic Education, Prescription Opioid Use. Follow up: Private Physician; When: 2 - 3 days; Reason: Re-evaluation by your physician.
[2018-10-16 21:31] LABS: BUN Blood Urea Nitrogen 10 mg/dL (7-18); Bicarbonate 26 mmol/L (21-32); Glucose Level 89 mg/dL (74-106); Potassium 3.4 mmol/L (3.5-5.1); Sodium Level 142 mmol/L (136-145)
[2018-10-16 21:37] LABS: Urine Blood TRACE (NEG); Urine Glucose NEGATIVE (NEG); Urine Protein 1+ (NEG); Urine Specific Gravity >1.030 (1.005-1.030); Urine pH 5.5 (5.0-7.0)
[2018-10-16 21:48] LABS: Urine Amorphous Sediment 4+ /HPF (NONE SEEN); Urine Bacteria <20 /HPF (<20); Urine Culture Reflex Order NOT NEEDED; Urine RBC <5 /HPF (NONE SEEN)
[2018-10-16 23:51] VITALS: BP 125/85; TEMP 98.4; O2SAT 100
== END 2018-10-16 21:48 | disposition home or self-care (01) ==
LOC: ER 20:22
DX: R11.10 Vomiting, unspecified (principal); R19.7 Diarrhea, unspecified
CPT/HCPCS: 36415; 80048; 81003; 81015; 81025; 85025; 99283

== ENCOUNTER 2021-05-11 10:04 | Emergency (ER) | payer SELFPAY ==
--- OUTSIDE RECORDS SUMMARY | 2021-05-11 10:07 | XMS REPORT | Continuity of Care Document ---
:1990 Author Organization [facility] t Address [address] [place] [address] Care Team Providers Name Role Phone Jesusita John Attending Clinician Judith Reina Attending Clinician Payers Payer Name Policy Type Policy Number Effective Date Expiration Date S ource Problems Condition Condition Condition Status Onset Resolution Last Treating Co mments Source Name Details Category Date Date Treatment Clinician Date No known No known Disease Unive rs active active ity of problems problems [facility] Allergies, Adverse Reactions, Alerts Allergy Allergy Status Severity Reaction(s) Onset Inactive Treating Comm ents Source Name Type Date Date Clinician NO KNOWN Drug Active Univers ALLERGIE Class ity of S [facility] Social History Social Habit Start Date Stop Date Quantity Comments Source Sex Assigned At Uni versity [facility] Exposure to SARS-CoV-2 Not sure [facility] [place] (event) [facility] Smoking Status Start Date Stop Date Source Unknown if ever smoked Universit y [facility] Medications Ordered Filled Start Stop Current Ordering Indication Dosage Frequency Signature Comments Components Source Medication Medication Date Date Medication? Clinician (SIG) Name Name methocarbam 2019-04 2020- No 500mg 500 mg, U nivers oL 0-15 10-15 Oral, ONCE ity of (ROBAXIN) 04:30: 03:52 NOW, 1 [place] tablet 500 00 :00 dose, Wed Medi jean mg 01/23/20 Branch at 2330, Routine ketorolac 2019-04- No 30mg 30 mg, Unive rs (TORADOL) 0-15 10-15 Intramuscu ity of injection 04:30: 03:52 lar, ONCE, [place] 30 mg 00 :00 1 dose, Medical Wed Branch 01/23/20 at 2330, ISABELLE
Fa culty member approving Restricted medication : WILL CATALAN naproxen 2019-04 Yes [id number] 500mg Take 1 U nivers 500 mg 0-14 tablet by ity of tablet 00:00: mouth 2 (two) Medical times Branch daily with meals. methocarbam 2019-04 Yes [id number] 500mg Take 1 Univers oL 500 mg 0-14 tablet by ity o f tablet 00:00: mouth 4 00 (four) Medical times Branch daily. FENTanyl PF 2019- No 50ug 50 mcg, Un paulo (SUBLIMAZE 04-30 Slow IV ity o f (PF)) 03:45: 04:08 Push, [place] injection 00 :00 ONCE, 1 Medical 50 mcg dose, [place] Branch 04/29/19 at 2145, STAT ketorolac 2019- No 30mg 30 mg, Unive rs (TORADOL) 04-30 Slow IV ity of injection 02:30: 01:27 Push, [place] 30 mg 00 :00 ONCE, 1 Medical dose, [facility] 04/29/19 at 2030, ISABELLE
Fa culty member approving Restricted medication : ISAK MONTANEZ NaCl 0.9% 2019- No 1000mL at 999 Uni vers (NS) bolus 04-30 mL/hr, ity of infusion 02:15: 03:02 1,000 mL, [place] 1,000 mL 00 :00 IV Medical Piggyback, Branch ONCE, 1 dose, [place] 04/29/19 at 2015, STAT traMADol 50 2019- No [id number] 50mg Take 1 Univers mg tablet 04-29 tablet by ity of 00:00: 05:59 mouth [place] 00 :00 every 6 Medical (six) Branch hours as needed for Pain (scale 7-10) for up to 3 days. traMADOL Yes 50mg Take 1 Univers (ULTRAM) 50 8-16 tablet by ity of mg tablet 00:00: mouth [place] 00 every 6 Medical (six) Branch hours as needed for Pain (scale 4-6). cyclobenzap 2017- Yes 5mg Take 1 Univ ers rine 5 mg 8-16 tablet by ity o f tablet 00:00: mouth 3 00 (three) Medical times Branch daily. traMADOL 2017-0 Yes 50mg Take 1 Univers (ULTRAM) 50 8-16 tablet by ity of mg tablet 00:00: mouth [place] 00 every 6 Medical (six) Branch hours as needed for Pain (scale 4-6). cyclobenzap 2018-0 Yes 5mg Take 1 Univ ers rine 5 mg 8-16 tablet by ity o f tablet 00:00: mouth 3 [place] 00 (three) Medical times Branch daily. Vital Signs Vital Name Observation Time Observation Value Comments Source Systolic blood 2020-01-24 01:22:00 135 mm[Hg] Univer sity of pressure [facility] Diastolic blood 2020-01-24 01:22:00 82 mm[Hg] Unive rsity of pressure [facility] Heart rate 2020-01-24 01:22:00 81 /min Universi [facility] Body temperature 2020-01-24 01:22:00 37.06 Day [facility] Respiratory rate 2020-01-24 01:22:00 18 /min [facility] Body weight 2020-01-24 01:22:00 89.812 kg Universi [facility] BMI 2020-01-24 01:22:00 31.96 kg/m2 Universi [facility] Oxygen saturation in 2020-01-24 01:22:00 100 /min University of Arterial blood by [facility] Pulse oximetry Branch Systolic blood 2019-04-30 04:00:00 133 mm[Hg] Univer sity of [facility] Diastolic blood 2019-04-30 04:00:00 81 mm[Hg] Unive rsity of [facility] Heart rate 2019-04-30 04:00:00 66 /min Universi ty [facility] Respiratory rate 2019-04-30 04:00:00 18 /min [facility] Oxygen saturation in 2019-04-30 04:00:00 98 /min University of Arterial blood by [facility] Pulse oximetry Branch Body temperature 2019-04-30 00:47:00 36.67 Day [facility] Body height 2019-04-30 00:47:00 167.6 cm Universi ty [facility] Body weight 2019-04-30 00:47:00 96.163 kg Universi ty [facility] BMI 2019-04-30 00:47:00 34.22 kg/m2 [facility] Procedures Procedure Date / Time Performing Clinician Source Performed POCT TEST 2020-01-24 03:49:00 [facility] NOTICE OF PRIVACY 2020-01-24 01:07:35 Doctor Unassigned, No [facility] [place] [facility] CONSENT/REFUSAL FOR 2020-01-24 01:07:21 Doctor Unassigned, No [facility] [place] DIAGNOSIS AND TREATMENT Name [facility] US OVARY TORSION 2019-04-30 03:38:19 Yanet Lopez [facility] ty of [facility] CT ABDOMEN PELVIS WO 2019-04-30 01:46:00 Yanet Lopez [facility] POCT TEST 2019-04-30 01:19:00 Yanet Lopez [facility] LIPASE 2019-04-30 01:16:00 Jessica Yanetadriano Wong [facility] [place] [facility] y [facility] COMP. METABOLIC PANEL 2019-04-30 01:16:00 Yanet Lopez [facility] ([id number]) [facility] CBC WITH DIFFERENTIAL 2019-04-30 01:16:00 Yanet Lopez [facility] URINALYSIS 2019-04-30 01:16:00 Jessica Yanetadriano Wong [facility] [place] [facility] y [facility] NOTICE OF PRIVACY 2019-04-30 00:31:34 Doctor [facility]assigned, No [facility]US[facility] FOR 2019-04-30 00:31:06 Doctor Unassigned, No Un [facility] DIAGNOSIS AND TREATMENT [facility] Encounters Start End Encounter Admission Attending Care Care Encounter Source Date/Time Date/Time Type Type Clinicians Facility Department ID 2020-01-23 2020-01-23 Emergency [facility] [id number] Univers 20:23:00 23:12:00 Will Petty [id number] i ty [place] [id number] [facility] [id number] [facility] 084 Branch 2020-01-23 2020-01-23 Emergency X [facility] ERT [id number] Univers 20:06:00 20:06:00 ity of [facility] 2019-04-29 2019-04-29 Emergency [place], [facility] [id number] [facility] [place] 18:49:01 22:50:00 Yanet Petty [id number] [facility] [id number] [facility] [id number] [place] [id number] Branch Results Test Description Test Time Test Comments Results Result Comments Source POCT TEST 2020-01-24 03:49:00 Test Item Value Reference Range Interpretation Comme nts POCT PREG (test code = 1605) negative On board controls acceptable with C Line (test code = 3574) present POCT PREG LOT # (test code = 3575) [id number] POCT PREG TEST DATE (test code = 3576) 11/08/2020 Lab Interpretation (test code = 11958-4) [facility] [id number] 03:49:13Impression: 1. 2.4 cm right ovarian cyst. No pelvic free fluid.2. Bilateral ovarian color and spectral Doppler flow is demonstrated. RL: [id number]: [id number] End of Report Exam: Pelvic Ultrasound, 04/29/2019 8:45 PM. Ordering Physician: RHETT NIXON. History: ?Pelvic pain, abdominal flank pain, right ovarian cyst. Comparison: None. Technique: Multiple grayscale, color Doppler, and pulsed Doppler ultrasoundimages of the pelvis were obtainedtransabdominally. Findings: Uterus is anteverted and measures 7.2 x 3.9 x 5.7 cm in size. ?Endometriummeasures 11 mm in thickness. Right ovary measures 3.6 x 3.0 x 3.1 cm in size. Ovoid, hypoechoicstructure in the right ovary measures 2.4 x 1.6 x 2.0 cm, without internalcolor Doppler flow. Left ovary measures 3.5 x 2.0 x 1.8 cm in size. ?Normalcolor Doppler flow and pulsed Doppler flow are demonstrated in bothovaries. There is no pelvic free fluid. [facility], Radiant Results Inft User - 04/29/2019 9:50 PM CSTExam: Pelvic Ultrasound, 04/29/2019 8:45 PM.Ordering Physician: YANET LOPEZ.History: Pelvic pain, abdominal flank pain, right ovarian cyst.Comparison: None.Technique: Multiple grayscale, color Doppler, and pulsed Doppler ultrasoundimages of the pelvis were obtained transabdominally.Findings: Uterus is anteverted and measures 7.2 x 3.9 x 5.7 cm in size. Endometriummeasures 11 mm in thickness.Right ovary measures 3.6 x 3.0 x 3.1 cm in size. Ovoid, hypoechoicstructure in the right ovary measures 2.4 x 1.6 x 2.0 cm, without internalcolor Doppler flow. Left ovary measures 3.5 x 2.0 x 1.8 cmin size. Normalcolor Doppler flow and pulsed Doppler flow are demonstrated in bothovaries.There is no pelvic free fluid.IMPRESSIONImpression: 1. 2.4 cm right ovarian cyst. No pelvic free fluid.2. Bilateral ovarian color and spectral Doppler flow is demonstrated.RL: [id number]: [id number] of Report [facility] WO [id number] 02:07:09Impression: 1. No renal or ureteral calculi are identified. No hydronephrosis orhydroureter.2. Normal appendix. No free air or free fluid.3. 3.8 cm ovarian cyst. RL: [id number]: [id number] End of Report Exam: CT Abdomen and Pelvis Without Contrast,04/29/2019 7:15 PM. Ordering Physician: YANET LOPEZ. History: Abdominal flank pain. Technique: CT abdomen and pelvis was obtained without intravenous contrast. CT was performed according to ALARA (As Low As Reasonably Achievable). Comparison: None. Findings: CT Abdomen:Lung bases are clear. Heart size is normal. Osseous structures areunremarkable. Liver, gallbladder, pancreas, spleen, and adrenal glands are within normallimits. There is no pancreatic or biliary duct dilatation. Kidneys are symmetric in size. ?There is no hydronephrosis or hydroureter.No renal or ureteral calculi are identified. There is no free air or free fluid. There is no abdominal adenopathy.Multiple small mesenteric lymph nodes may be reactive to an inflammatory orinfectious process. Stomach is unremarkable. Small bowel loops are unremarkable. There is noevidence of bowel obstruction. Appendix is normal. There is moderatecolonic stool. CT Pelvis:Pelvic small bowel loops are unremarkable. Urinary bladder is unremarkab le. Uterus is not enlarged. Hypodense, 3.8 cmright adnexal structure with thin rim is seen, likely in the ovary. There is no pelvic free fluid. There is no pelvic adenopathy. Osseous structures are unremarkable. [facility], Radiant Results Inft User - 04/29/2019 8:08 PM CSTExam: CT Abdomen and Pelvis Without Contrast, 04/29/2019 7:15 PM.Ordering Physician: YANET LOPEZ.History: Abdominal flank pain.Technique: CT abdomen and pelvis was obtained without intravenous contrast. CT was performed according to ALARA (As Low As Reasonably Achievable).Comparison: None.Findings: CT Abdomen:Lung bases are clear. Heart size is normal. Osseous structures areunremarkable. Liver, gallbladder, pancreas, spleen, and adrenal glands are within normallimits. There is no pancreatic or biliary duct dilatation.Kidneys are symmetric in size. There is no hydronephrosis or hydroureter.No renal or ureteral calculi are aliza ntified.There is no free air or free fluid. There is no abdominal adenopathy.Multiple small mesenteric lymph nodes may be reactive to an inflammatory orinfectious process.Stomach is unremarkable. Smallbowel loops are unremarkable. There is noevidence of bowel obstruction. Appendix is normal. There ismoderatecolonic stool.CT Pelvis:Pelvic small bowel loops are unremarkable.Urinary bladder is unremarkable. Uterus is not enlarged. Hypodense, 3.8 cmright adnexal structure with thin rim is seen, likelyin the ovary.There is no pelvic free fluid. There is no pelvic adenopathy. Osseous structures are unremarkable. IMPRESSIONImpression: 1. No renal or ureteral calculi are identified. No hydronephrosis orhydroureter.2. Normal appendix. No free air or free fluid.3. 3.8 cm ovarian cyst.RL: [id number]: [id number] of Report [facility] [id number] 02:05:00 Test Item Value Reference Range Interpretation Comments APPEARANCE (test code = Clear Clear 1105546081) COLOR (test code = Straw Yellow A 7851837491) PH (test code = 4.8-8.0 2107733894) SP GRAVITY (test code = 1.003-1.030 2347368982) GLU U QUAL (test code = Normal Normal 2734462212) BLOOD (test code = Negative Negative INTERFERE NCE FROM 6974994457) ASCORBIC ACID M AY CAUSE FALSE NEG ATIVE RESULT KETONES (test code = Negative Negative 2739096500) PROTEIN (test code = Negative Negative 2887-8) UROBILIN (test code = Normal Normal 8557171015) BILIRUBIN (test code = Negative Negative 5801335176) NITRITE (test code = Negative Negative 2664974801) LEUK JENNIFER (test code = Negative Negative 5244922471) RBC/HPF (test code = See_Comment [Autom ated message] 2593106959) The system [employer] generated this result transmitted ref erence range: 0 - 3 HP F. The reference range was not used to int erpret this result as normal/abnormal . WBC/HPF (test code = <1 See_Comment [Autom ated message] 7099972551) The system [employer] generated this result transmitted ref erence range: 0 - 5 HP F. The reference range was not used to int erpret this result as normal/abnormal . BACTERIA (test code = Few Negative A 5412552185) MUCOUS (test code = Slight Negative LPF A 9952777036) SQ EPITH (test code = HPF 4447719881) Lab Interpretation (test Abnormal code = 36134-1) [facility] ([id number])2019-04-30 02:03:00 Test Item Value Reference Range Interpretation Comments NA (test code = 140 mmol/L 135-145 2098040033) K (test code = 3.6 mmol/L 3.5-5 6112058829) CL (test code = 103 mmol/L 98-108 7781673811) CO2 TOTAL (test code = 28 mmol/L 23-31 6341953915) AGAP (test code = 2-16 9299745592) BUN (test code = 12 mg/dL 7-23 3168732629) GLUCOSE (test code = 87 mg/dL 70-110 7122283066) CREATININE (test code = 0.62 mg/dL 0.5-1.04 8668258404) TOTAL BILI (test code = <0.1 0.1-1.1 L 7858245551) CALCIUM (test code = 9.1 mg/dL 8.6-10.6 6929844350) T PROTEIN (test code = 7.9 g/dL 6.3-8.2 1558705990) ALBUMIN (test code = 4.3 g/dL 3.5-5 2433264681) ALK PHOS (test code = 79 U/L 34-122 0976341717) ALTv (test code = 13 U/L 5-35 1742-6) AST(SGOT) (test code = 19 U/L 13-40 0918040888) eGFR Calculation mL/min/1.73m2 (Non-) (test code = 5919919943) eGFR Calculation mL/min/1.73m2 () (test code = 7911558368) KRISTIE (test code = KRISTIE) Association of Glomerular Filtration Rate (GFR) and Staging of Kidney Disease* + --+ --+ ------+| GFR (mL/min/1.73 m2) ?| With Kidney Damage ?| ?Without Kidney Damage+ --------+ --------+ +| ?>90 ?| ?Stage one ?| ? Normal ?+ ---+ ---+ -------+| ?60-89 ?| ?Stage two ?| ? Decreased GFR ? + --+ --+ ------+| ?30-59 ?| ?Stage three ?| ? Stage three ? + --+ --+ ------+| ?15-29 ?| ?Stage four ? | ? Stage four ?+ ---+ ---+ -------+| ?<15 (or dialysis) ? ?| ?Stage five ? | ? Stage five ?+ ---+ ---+ -------+ *Each stage assumes the associated GFR level has been in effect for at least three months. ?Stages 1 to 5, with or without kidney disease, indicate chronic kidney disease. Notes: Determination of stages one and two (with eGFR >59mL/min/1.73 m2) requires estimation of kidney damage for at least three months as defined by structural or functional abnormalities of the kidney, manifested by either:Pathological abnormalities or Markers of kidney damage (including abnormalities in the composition of the blood or urine or abnormalities in imaging tests). Lab Interpretation Abnormal (test code = 25108-1) [facility] WITH [id number] 02:03:00 Test Item Value Reference Range Interpretation Comments WBC (test code = See_Comment [Automated 6690-2) message] The sy stem which generated this result transmitted reference range : 4.30 - 11.10 10*3/?L. The reference range was not used to interpret this result as normal/abnormal . RBC (test code = See_Comment [Automated 789-8) message] The sy stem which generated this result transmitted reference range : 3.93 - 5.25 10*6/?L. The reference range was not used to interpret this result as normal/abnormal . HGB (test code = 12.5 g/dL 11.6-15 718-7) HCT (test code = 39.1 % 35.7-45.2 4544-3) MCV (test code = 92.0 fL 80.6-95.5 787-2) MCH (test code = 29.4 pg 25.9-32.8 785-6) MCHC (test code = 32.0 g/dL 31.6-35.1 786-4) RDW-SD (test code = 42.6 fL 39-49.9 20920-3) RDW-CV (test code = 12.7 % 12-15.5 788-0) PLT (test code = See_Comment [Automated 777-3) message] The sy stem which generated this result transmitted reference range : 166 - 358 10*3/ ?L. The reference r ru was not used to interpret this result as normal/abnormal . MPV (test code = 9.5 fL 9.5-12.9 24802-7) NRBC/100 WBC (test See_Comment [Automat ed code = 6135342857) message] The system which generated this result transmitted reference range : 0.0 - 10.0 /100 WBCs. The refer ence range was not u sed to interpret th is result as normal/abnormal . NRBC x10^3 (test code <0.01 See_Comment [Auto mated = 8120192750) message] The s ystem which generated this result transmitted reference range : 10*3/?L. The reference range was not used to interpret this result as normal/abnormal . GRAN MAT (NEUT) % 51.4 % (test code = 770-8) IMM GRAN % (test code 0.40 % = 6528276307) LYMPH % (test code = 37.1 % 736-9) MONO % (test code = 8.7 % 5905-5) EOS % (test code = 1.9 % 713-8) BASO % (test code = 0.5 % 706-2) GRAN MAT x10^3(ANC) 5.65 10*3/uL 1.88-7.09 (test code = 1076776794) IMM GRAN x10^3 (test 0.04 10*3/uL 0-0.06 code = 6435356699) LYMPH x10^3 (test code 4.07 10*3/uL 1.32-3.29 H = 731-0) MONO x10^3 (test code 0.95 10*3/uL 0.33-0.92 H = 742-7) EOS x10^3 (test code = 0.21 10*3/uL 0.03-0.39 711-2) BASO x10^3 (test code 0.05 10*3/uL 0.01-0.07 = 704-7) Lab Interpretation Abnormal (test code = 50259-5) [facility]:00 Test Item Value Reference Range Interpretation Comments LIPASE (test code = 4260479014) 127 U/L 0-220 Lab Interpretation (test code = Normal 92715-1) [facility] [id number] 01:19:00 Test Item Value Reference Range Interpretation Comments POCT PREG (test code = 1605) NEGATIVE On board controls acceptable with postive C Line (test code = 3574) POCT PREG LOT # (test code = 3575) [id number] POCT PREG TEST DATE (test 11/08/2020 code = 3576) Lab Interpretation (test code = Normal 12996-4) [facility]"
--- NOTE | 2021-05-11 12:14 | ER ---
Nurse's Notes [facility] Name: Suha Valencia Age: 30 yrs Sex: Female : 1990 Arrival Date: 05/11/2021 Time: 10:10 Bed DX4 Private MD: Diagnosis: Strain of left Achilles tendon, initial encounter-right Presentation: 05/11 10:33 Chief complaint: Patient states: states that yesterday she was playing basketball and jh6 stepped to pass when she felt a burning pain to rt heal -ankle. states pain shoots up to lower calf area. has been icing area without relief in pain. Coronavirus screen: At this time, unable to obtain information related to travel outside the [place] At this time, the client does not indicate any symptoms associated with coronavirus-19. Ebola Screen: No symptoms or risks identified at this time. Initial Sepsis Screen: Does the patient meet any 2 criteria? No. Patient's initial sepsis screen is negative. Does the patient have a suspected source of infection? No. Patient's initial sepsis screen is negative. Risk Assessment: Do you want to hurt yourself or someone else? Patient reports no desire to harm self or others. Onset of symptoms was May 10, 2021. 10:33 Method Of Arrival: Ambulatory [facility] 10:33 Acuity: KRISTIAN 4 [facility] Triage Assessment: 10:37 General: Appears in no apparent distress. comfortable, Behavior is calm, cooperative. [facility] Pain: Complains of pain in right Achilles Pain radiates to right leg Pain currently is 10 out of 10 on a pain scale. Quality of pain is described as burning, aching, sharp, Pain began 1 day ago. Is continuous, Alleviated by cold application, relaxation, Aggravated by exercise, increased activity. 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 - Social history:: Smoking status: Patient denies any tobacco usage or history of. Screenin:16 Abuse screen: Denies threats or abuse. Denies injuries from another. Nutritional ss screening: No deficits noted. Tuberculosis screening: Never had TB. Fall Risk None identified. Assessment: 12:16 General: Appears in no apparent distress. comfortable, Behavior is calm, cooperative. ss Pain: Complains of pain in right heel and right Achilles Pain currently is 10 out of 10 on a pain scale. Quality of pain is described as burning, Pain began 1 day ago. Is continuous. Neuro: Level of Consciousness is awake, alert, obeys commands, Oriented to person, place, time, situation, Speech is normal, Facial symmetry appears normal. Cardiovascular: Pulses are palpable in right posterior tibial artery and left posterior tibial artery. Respiratory: Airway is patent Respiratory effort is even, unlabored, Respiratory pattern is regular, symmetrical. Derm: Skin is pink, warm \T\ dry. normal. Musculoskeletal: Circulation, motion, and sensation intact. Range of motion: intact in all extremities, Swelling absent. Vital Signs: 10:33 BP 123 / 83; Pulse 94; Resp 17; Temp 98.4; Pulse Ox 100% ; Weight 87.54 kg; Height 5 6 ft. 4 in. (162.56 cm); Pain 10/10; 10:33 Body Mass Index 33.13 (87.54 kg, 162.56 cm) [facility] ED Course: 10:10 Patient arrived in ED. am2 10:36 Triage completed. [facility] 10:36 Arm band placed on right wrist. [facility] 10:47 Chino Pantoja PA is PHCP. cp 10:47 Akhil De Souza MD is Attending Physician. cp 11:15 XRAY Heel Os Calcis (calcaneus) In Process Unspecified. EDMS 12:13 Tay Moreno MD is Referral Physician. cp 12:14 Patient has correct armband on for positive identification. Bed in low position. Call 5 light in reach. Pulse ox on. NIBP on. 12:14 Crutch training done. 3D boot applied to right foot. 5 12:33 No provider procedures requiring assistance completed. Patient did not have IV access ss during this emergency room visit. Administered Medications: 12:16 Drug: Ibuprofen 800 mg Route: PO; ss 12:36 Follow up: Response: No adverse reaction; Medication administered at discharge. 12:16 Drug: Tylenol 650 mg Route: PO; ss 12:36 Follow up: Response: No adverse reaction; Medication administered at discharge. Outcome: 12:14 Discharge ordered by . cp 12:33 Discharged to home via wheelchair. ss 12:33 Condition: good 12:33 Discharge instructions given to patient, Instructed on discharge instructions, follow up and referral plans. medication usage, Demonstrated understanding of instructions, follow-up care, Prescriptions given X 1. 12:36 Patient left the ED. Signatures: Dispatcher [employer] EDMS Tamar Loco RN RN Chino Pantoja PA PA cp Martinez, Maria 5 Kaye Pathak [facility] Priscila Carlson RN RN jh6
--- NOTE | 2021-05-11 12:14 | RAD REPORT ---
EXAM DESCRIPTION: RAD - Os Calcis (Calcaneus) Heel - 05/11/2021 11:15 am CLINICAL HISTORY: PAIN COMPARISON: No comparisons FINDINGS: No acute fracture. Small plantar aspect calcaneal spur. No significant focal degenerative changes. IMPRESSION: No acute osseous abnormality involving the calcaneus.
--- NOTE | 2021-05-11 12:15 | EDPHYS ---
Physician Documentation [facility] Name: Suha Valencia Age: 30 yrs Sex: Female : 1990 Arrival Date: 05/11/2021 Time: 10:10 Bed DX4 Private MD: ED Physician Akhil De Souza HPI: 05/11 11:00 This 30 yrs old Black Female presents to ER via Ambulatory with complaints of Foot Pain cp - right. 11:00 The patient presents with pain, that is acute. The complaints affect the right Achilles cp and right heel. 11:00 Context: The problem was sustained at a sports field or court, resulted from playing cp sports, basketball, the patient can partially bear weight, the patient is able to ambulate, with moderate difficulty. 11:00 Onset: The symptoms/episode began/occurred yesterday. Modifying factors: the symptoms cp are aggravated by movement, weight bearing. Patient reports injury to heel and back of lower leg yesterday while playing basketball. patient reports burning pain to area. 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 - Social history:: Smoking status: Patient denies any tobacco usage or history of. ROS: 11:05 MS/extremity: Positive for pain, of the right heel and right Achilles, Negative for cp decreased range of motion, deformity, paresthesias. 11:05 Skin: Negative for cellulitis, rash. cp 11:05 Constitutional: Negative for body aches, chills, fever. cp 11:05 All other systems are negative. cp Exam: 11:10 Constitutional: The patient appears in no acute distress, alert, awake, well developed, cp well nourished, overweight 11:10 Head/Face: Normocephalic, atraumatic. cp 11:10 Cardiovascular: Rate: normal. 11:10 Respiratory: the patient does not display signs of respiratory distress, Respirations: normal, no use of accessory muscles, labored breathing, is not present. 11:10 Musculoskeletal/extremity: Extremities: grossly normal except: noted in the right heel and right Achilles: pain, tenderness, There is no evidence of decreased ROM, ROM: limited active range of motion due to pain, plantar flexion and extension of right foot, Pulses: noted to be 2+ in the right dorsalis pedis artery, Achilles tendon palpated and intact, negative De La Cruz test. 11:10 Skin: cellulitis, is not appreciated, no rash present. Vital Signs: 10:33 BP 123 / 83; Pulse 94; Resp 17; Temp 98.4; Pulse Ox 100% ; Weight 87.54 kg; Height 5 jh6 ft. 4 in. (162.56 cm); Pain 10/; 10:33 Body Mass Index 33.13 (87.54 kg, 162.56 cm) jh6 MDM: 11:31 Test interpretation: by ED physician or midlevel provider: xrays of right heel negative cp for fracture. 12:05 Patient medically screened. cp 12:13 Data reviewed: vital signs, nurses notes, radiologic studies, plain films. cp 12:13 Differential diagnosis: closed fracture, tendonitis, tendon rupture. Counseling: I had cp a detailed discussion with the patient and/or guardian regarding: the historical points, exam findings, and any diagnostic results supporting the discharge/admit diagnosis, radiology results, the need for outpatient follow up, for definitive care, a orthopedic surgeon, to return to the emergency department if symptoms worsen or persist or if there are any questions or concerns that arise at home. 05/11 10:52 Order name: XRAY Heel Os Calcis (calcaneus) cp 05/11 11:31 Order name: Walking boot; Complete Time: 12:12 cp 05/11 11:31 Order name: Crutches; Complete Time: 12:12 cp Administered Medications: 12:16 Drug: Ibuprofen 800 mg Route: PO; ss 12:36 Follow up: Response: No adverse reaction; Medication administered at discharge. ss 12:16 Drug: Tylenol 650 mg Route: PO; ss 12:36 Follow up: Response: No adverse reaction; Medication administered at discharge. Disposition: 12:30 Chart complete. cp 17:46 Co-signature as Attending Physician, Akhil De Souza MD. rn Disposition Summary: 05/11/21 12:14 Discharge Ordered Location: Home cp Problem: new cp Symptoms: have improved cp Condition: Stable cp Diagnosis - Strain of left Achilles tendon, initial encounter - right cp Followup: cp - With: Tay Moreno MD - When: 1 week - Reason: Recheck today's complaints Discharge Instructions: - Discharge Summary Sheet cp - Muscle Strain cp - RICE Therapy for Routine Care of Injuries cp Forms: - Work release form bd - Medication Reconciliation Form cp - Thank You Letter cp - Antibiotic Education cp - Prescription Opioid Use cp Prescriptions: - Diclofenac Sodium 75 mg Oral Tablet Sustained Release - take 1 tablet by ORAL route 2 times per day; 30 tablet; Refills: 0, Product cp Selection Permitted Signatures: Dispatcher [employer] EDAkhil Roberson MD MD rn Smirch, Shelby, RN RN ss Chino Pantoja PA PA cp Priscila Carlson RN RN jh6
[2021-05-11] MEDS ORDERED: ACETAMINOPHEN 325 MG TABLET ONE (12:16)
[2021-05-11] MEDS ORDERED: IBUPROFEN 400 MG TAB ONE (12:16)
[2021-05-11 12:58] VITALS: BP 123/83; TEMP 98.4; O2SAT 100
== END 2021-05-11 12:36 | disposition home or self-care (01) ==
LOC: ER 10:04
DX: S86.011A Strain of right Achilles tendon, initial encounter (principal); Y93.67 Activity, basketball; Y92.310 Basketball court as the place of occurrence of the external cause
CPT/HCPCS: 73650; 99284

== ENCOUNTER 2021-06-02 11:15 | Day surgery (SDC) | payer SELFPAY ==
[2021-06-01 13:33] LABS: Absolute Lymphocytes (CBC) 2.7 K/uL (0.7-4.9); Hematocrit 40.8 % (36.0-45.0); Lymphocytes % 32.7 % (15.3-44.8); MPV 7.2 fL (7.6-11.3); RBC Red Blood Cell Count 4.62 M/uL (3.86-4.86)
[2021-06-01 13:35] LABS: Specific Gravity 1.025 (1.005-1.030)
[2021-06-01 13:41] LABS: BUN Blood Urea Nitrogen 14 mg/dL (7-18); Bicarbonate 30 mmol/L (21-32); Glucose Level 107 mg/dL (74-106); Potassium 3.5 mmol/L (3.5-5.1); Sodium Level 140 mmol/L (136-145)
[2021-06-02] MEDS ORDERED: Ringers Lactate 1,000 ML IV ONE (11:21)
[2021-06-02] MEDS ORDERED: CEFAZOLIN SODIUM 1 GM/VIAL ONE ×2 (11:21→11:26)
[2021-06-02] MEDS ORDERED: NA CHLORIDE 0.9% 50 ML ONE (11:26)
[2021-06-02] MEDS ORDERED: FENTANYL CITR 100 MCG/2 ML ONE (11:43)
[2021-06-02] MEDS ORDERED: MIDAZOLAM HCL 2 MG/2 ML INJ ONE (11:43)
[2021-06-02] MEDS ORDERED: dexAMETHasone 4 MG/ML VIAL ONE (11:44)
[2021-06-02] MEDS ORDERED: SODIUM BICARB 50 MEQ/50ML VIAL ONE (11:45)
[2021-06-02] MEDS ORDERED: LIDOCAINE 1% MPF 5 ML VIAL ONE (11:48)
[2021-06-02] MEDS ORDERED: propofoL 200 MG/20 ML VIAL IV ONE ×2 (12:28→13:33)
[2021-06-02] MEDS ORDERED: ROCURONIUM 50 MG/5 ML VIAL IV ONE (12:29)
[2021-06-02] MEDS ORDERED: LIDOCAINE 2% MPF 5 ML VIAL ONE (12:29)
[2021-06-02] MEDS ORDERED: dexAMETHasone 10 MG/ML VIAL ONE (12:52)
[2021-06-02] MEDS ORDERED: KETOROLAC 30 MG/ML INJ ONE (12:52)
[2021-06-02] MEDS ORDERED: ONDANSETRON 4 MG/2 ML VIAL ONE (12:54)
[2021-06-02] MEDS ORDERED: ESMOLOL HCL 10 ML IV ONE (13:22)
[2021-06-02] MEDS ORDERED: GLYCOPYRROLATE 0.2 MG/ML SYR ONE (13:23)
[2021-06-02] MEDS ORDERED: NEOSTIGMINE 1 MG/ML -5 ML ONE (13:32)
[2021-06-02 14:30] VITALS: O2SAT 99
[2021-06-02 15:39] VITALS: BP 122/76; TEMP 96.7
--- NOTE | 2021-06-03 00:23 | OP ---
Date of Procedure: 06/02/2021 Surgeon: Tay Moreno MD Preoperative Diagnosis: Right Achilles tendon rupture. Postoperative Diagnosis: Right Achilles tendon rupture. Procedure: Right Achilles tendon repair. Estimated Blood Loss: 10 cc. Complications: There were no complications. Pathology: No pathology specimen sent. Indications For Operation: Ms. 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 She came to see me in my office after being seen in the emergency room, where she was ruled out for frac haley. Unfortunately, she had continued disability diagnosed in my office by physical examination wi th Achilles tendon rupture. However, we did obtain an MRI to confirm this and definitely has a full- thickness Achilles tendon rupture. Risks, benefits, and alternatives with different methods of treat ing this have been discussed with the patient. She was a little bit delayed to see me. Therefore, c ast fixation could have been problematic, but regardless, the patient opts for operative intervention and risks, benefits, and alternatives of this procedure have been discussed and she agrees to sarai bob. Description Of Procedure: The patient was taken to the operating room and placed in supine position. General anesthesia was obtained by staff. Following this, a well-padded tourniquet was placed on s uperior right thigh. She was then rolled prone and her right lower extremity was then prepped and dr aped in usual sterile fashion. The leg was then gently elevated but not exsanguinated and the tourni quet was raised and incision was made which is medial to the Achilles tendon at its more distal aspec t, curving across into more of the midsubstance, higher. Great care was taken to make full-thickness flaps and the Achilles tendon was then exposed. There was a site of obvious rupture. There is some shortening of the more distal tendon as well as scarring of the more proximal tendon. However, it d id appear that there was appropriate tendon remaining, and with some fraying of both limbs of the ten don, we are able to obtain adequate length. After this, #5 FiberWire was then weaved in the more dis kelsie aspect and was a very secure, being able to plantar-flex the foot without difficulty by simply pu lling on the FiberWire strands. This was accompanied by plantar flexion of the foot and bringing gisela n of the more proximal section. This section was then weaved and the suture was then tied. After th is, the knee was brought up into full flexion. It appears to have no gapping and appears to be well fixed. Pressure on the gastroc demonstrates that the De La Cruz test has been re-established. The par atenon is then closed with a running 2-0 Vicryl sutures, followed by a very careful closure of the sk in using nylon sutures. Patient was placed in extremely well-padded sterile dressing as well as a po sterior splint. She is awakened and taken to recovery room in good condition. /BEATRICE Voice ID: [id number] Report ID: [id number]
== END 2021-06-02 15:33 | disposition home or self-care (01) ==
LOC: OR 11:15
PROVIDERS: ATTEND Orthopaedic Surgery
PROC: 0LQN0ZZ Repair Right Lower Leg Tendon, Open Approach (ICD-10-PCS; principal; 2021-06-02 14:00)
DX: S86.011A Strain of right Achilles tendon, initial encounter (principal); I10 Essential (primary) hypertension
CPT/HCPCS: 36415; 80048; 81025; 85025; J0690; J1100; J2250; J2405; J2704; J2710; J3010; J7120; U0003